=== PATIENT | female | born 1935 | race Caucasian/White ===

== ENCOUNTER 2018-09-04 16:39 | Emergency (ER) | payer MEDICARE, OTHER ==
[2018-09-04 16:59] VITALS: BP 142/69
[2018-09-04] MEDS ORDERED: Lidocaine 1% with EPINEPHrine 1:100,000 50 ML MDV INFILT ONE (17:40)
--- NOTE | 2018-09-04 18:44 | EDM.PDOC ---
ED HPI GENERAL MEDICAL PROBLEM - General Chief Complaint: Laceration Stated Complaint: LACERATION ON HEAD Time Seen by Provider: 09/04/18 17:10 Source of Information: Reports: Patient, Family History Limitations: Reports: No Limitations - History of Present Illness INITIAL COMMENTS - FREE TEXT/NARRATIVE: 83-year-old female stumbled backwards hitting the back of her head on the ground sustaining a laceration. She has a macerated somewhat irregular occipital laceration of the scalp hematoma. There is also a small hematoma on the right parietal scalp and the left forehead. Neurologically she's fine, no significant loss of consciousness and possibly just a brief 1 or 2 second amnesia of the event. She denies neck pain or back pain, injuries to her extremities or other complaints, no nausea or vomiting. Onset: Sudden Duration: Hour(s): (within the last hour) Location: Reports: Head Associated Symptoms: Denies: Confusion, Headaches, Loss of Appetite, Nausea/ Vomiting, Shortness of Breath, Weakness - Related Data Allergies Allergy/AdvReac Type Severity Reaction Status Date / Time codeine Allergy Bradycardia Verified 09/04/18 16:49 Home Meds: Home Meds Ascorbate Calcium [Vitamin C] 500 mg PO DAILY 05/14/16 [History] Calcium Carbonate [Calcium] 600 mg PO DAILY 05/14/16 [History] Omeprazole 20 mg PO DAILY 05/14/16 [History] Pravastatin [Pravachol] 40 mg PO DAILY 05/14/16 [History] Triamterene/Hydrochlorothiazid [Triamterene-HCTZ 37.5-25 MG] 1 tab PO DAILY 04/29 [History] amLODIPine Besylate [Amlodipine Besylate] 5 mg PO DAILY 05/14/16 [History] Naproxen 1 tab PO BID 04/16/18 [History] Clopidogrel Bisulfate [Clopidogrel] 09/04/18 [History] Metoprolol Tartrate 09/04/18 [History] Past Medical History HEENT History: Reports: Cataract, Hard of Hearing, Impaired Vision, Macular Degeneration Cardiovascular History: Reports: Heart Murmur, High Cholesterol, Hypertension, Prior Cardiac Arrest, Other (See Below) Other Cardiovascular History: "heart stopped during tear duct surgery due to pre -op muscle relaxant -40 years ago" Respiratory History: Reports: Bronchitis, Recurrent, Intubation, Previous, Pneumonia, Recurrent Gastrointestinal History: Reports: Colon Polyp, Gastritis, GERD 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: Dysfunctional Uterine Bleeding, , Spontaneous Musculoskeletal History: Reports: Osteoarthritis Psychiatric History: Reports: Anxiety Hematologic History: Reports: Anesthesia Reaction, Blood Transfusion(s) - Infectious Disease History Infectious Disease History: Reports: Chicken Pox, Measles, Mumps, Pertussis ( Whooping Cough) - Past Surgical History Head Surgeries/Procedures: Reports: None HEENT Surgical History: Reports: Cataract Surgery, Other (See Below) Female Surgical History: Reports: Breast Biopsy, D&C, Oophorectomy, Tubal Ligation Neurological Surgical History: Reports: None Musculoskeletal Surgical History: Reports: Arthroscopic Knee, Knee Replacement, Shoulder Surgery Dermatological Surgical History: Reports: Other (See Below) Social & Family History - Family History Family Medical History: Noncontributory - Tobacco Use Smoking Status *Q: Never Smoker - Caffeine Use Caffeine Use: Reports: Coffee ED ROS GENERAL - Review of Systems Review Of Systems: See Below Constitutional: Denies: Fever, Chills HEENT: Reports: No Symptoms. Denies: Vision Change Respiratory: Denies: Shortness of Breath GI/Abdominal: Denies: Nausea, Vomiting Musculoskeletal: Denies: Neck Pain, Back Pain Neurological: Denies: Confusion ED EXAM, SKIN/RASH Exam: See Below Exam Limited By: No Limitations General Appearance: Alert, No Apparent Distress Eye Exam: Bilateral Eye: Normal Inspection Ears: Other (A small amount of cerumen in ear canals, no hemotympanum or findings of trauma) Head: Other (Patient has several hematomas of the scalp, a small hematoma on the high left forehead, another small hematoma on the right parietal scalp and on the occiput that she has a larger hematoma with an overlying macerated 3 cm laceration) Respiratory/Chest: No Respiratory Distress, Lungs Clear Cardiovascular: Regular Rate, Rhythm Psychiatric: Normal Affect, Normal Mood Course - Vital Signs Last Recorded V/S: Last Vital Signs Temp 97.2 F 09/04/18 16:58 Pulse 72 09/04/18 16:58 Resp 14 09/04/18 16:58 BP 142/69 H 09/04/18 16:58 Pulse Ox 98 09/04/18 16:58 - Orders/Labs/Meds Meds: Medications Discontinued Medications Generic Name Dose Route Start Last Admin Trade Name Freq PRN Reason Stop Dose Admin Lidocaine/Epinephrine 30 ml 09/04/18 17:40 09/04/18 18:13 Xylocaine 1% With Epinephrine 1:100,000 INFILT 09/04/18 17:41 30 ml ONETIME ONE Administration - Re-Assessments/Exams Free Text/Narrative Re-Assessment/Exam: 09/05/18 07:12 The laceration was cleaned, a small amount of hair was cut back from the edges of the laceration and it was infiltrated with 1% lidocaine with epinephrine. After anesthesia it was flushed thoroughly with saline, and closed with 5 4-0 Ethilon sutures. A dressing was applied and the sutures can be removed in 7 days. The patient remained neurologically intact and normal and no further evaluation is necessary at this time. She does have family with her this weekend , they will bring her back if she starts to develop any confusion, persistent nausea or vomiting or neurologic deficits or concerns. Departure - Departure Time of Disposition: 18:47 Disposition: Home, Self-Care 01 Condition: Good Clinical Impression: Scalp laceration Qualifiers: Encounter type: initial encounter Qualified Code(s): S01.01XA - Laceration without foreign body of scalp, initial encounter Scalp hematoma Qualifiers: Encounter type: initial encounter Qualified Code(s): S00.03XA - Contusion of scalp, initial encounter - Discharge Information Instructions: Facial or Scalp Contusion, [id number], Sutured Wound Care, Easy -to-Read Referrals: PCP,None [Primary Care Provider] - Forms: ED Department Discharge Care Plan Goals: Ice to swollen areas will help, continue activity as tolerated. Sutures can be removed on Thursday next week. Return sooner if worsening such as persistent nausea or vomiting, visual changes or other concerns. Expect some neck and back stiffness over the next several days. Continue current medications.
== END 2018-09-04 18:48 | disposition home or self-care (01) ==
LOC: JP.ED 16:39
DX: S01.01XA Laceration without foreign body of scalp, initial encounter (principal); S00.83XA Contusion of other part of head, initial encounter; I10 Essential (primary) hypertension; K21.9 Gastro-esophageal reflux disease without esophagitis; Z88.5 Allergy status to narcotic agent; Z79.899 Other long term (current) drug therapy; Z98.49 Cataract extraction status, unspecified eye; Z98.51 Tubal ligation status; W22.8XXA Striking against or struck by other objects, initial encounter
CPT/HCPCS: 12002; 99282

== ENCOUNTER 2019-07-19 10:11 | Inpatient (IN) | payer MEDICARE, OTHER ==
[2019-07-19] MEDS ORDERED: Sodium Chloride 0.9% 10 ML Syringe FLUSH PRN (10:41)
[2019-07-19] MEDS ORDERED: Acetaminophen 325 MG Tab PO ONE (10:43)
[2019-07-19] MEDS ORDERED: Sodium Chloride 0.9% 1,000 ML IV SCH (10:45)
--- NOTE | 2019-07-19 10:47 | EDM.PDOC ---
ED HPI GENERAL MEDICAL PROBLEM - General Chief Complaint: Back Pain or Injury Stated Complaint: FELL Time Seen by Provider: 07/19/19 10:36 Source of Information: Reports: Patient, Family, RN Notes Reviewed History Limitations: Reports: No Limitations - History of Present Illness INITIAL COMMENTS - FREE TEXT/NARRATIVE: 84-year-old female presents emergency department today complaint of left flank pain she injured herself earlier this morning when she fell in her home landed on top of a metal waste container which hit directly in her left flank lower rib area. She is complaining of pain no nausea vomiting no shortness of breath no loss of consciousness pain is so intense it is difficult for her to move. - Related Data Allergies Allergy/AdvReac Type Severity Reaction Status Date / Time codeine Allergy Bradycardia Verified 07/19/19 11:05 Home Meds: Home Meds Ascorbate Calcium [Vitamin C] 500 mg PO DAILY 05/14/16 [History] Calcium Carbonate [Calcium] 600 mg PO DAILY 05/14/16 [History] Omeprazole 20 mg PO DAILY 05/14/16 [History] Pravastatin [Pravachol] 40 mg PO DAILY 05/14/16 [History] Triamterene/Hydrochlorothiazid [Triamterene-HCTZ 37.5-25 MG] 1 tab PO DAILY 04/29 [History] amLODIPine Besylate [Amlodipine Besylate] 5 mg PO DAILY 05/14/16 [History] Naproxen 1 tab PO BID 04/16/18 [History] Clopidogrel Bisulfate [Clopidogrel] 75 mg PO DAILY 09/04/18 [History] Metoprolol Tartrate 12.5 mg PO BID 09/04/18 [History] Latanoprost 1 drop EYEBOTH DAILY 12/29/18 [History] Hydrocodone/Acetaminophen [[place] 5-325 Tablet] 1 each PO Q8HR PRN #15 tablet [Rx] Aspirin 81 mg PO DAILY 06/07/19 [History] Past Medical History HEENT History: Reports: Cataract, Hard of Hearing, Impaired Vision, Macular Degeneration Cardiovascular History: Reports: Heart Murmur, High Cholesterol, Hypertension, Prior Cardiac Arrest, Other (See Below) Other Cardiovascular History: "heart stopped during tear duct surgery due to pre -op muscle relaxant -40 years ago" Respiratory History: Reports: Bronchitis, Recurrent, Intubation, Previous, Pneumonia, Recurrent Gastrointestinal History: Reports: Colon Polyp, Gastritis, GERD 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 R leg pain Psychiatric History: Reports: Anxiety Hematologic History: Reports: Anesthesia Reaction, Blood Transfusion(s) Immunologic History: Reports: None Oncologic (Cancer) History: Reports: None Dermatologic History: Reports: None - Infectious Disease History Infectious Disease History: Reports: Chicken Pox, Measles, Mumps, Pertussis ( Whooping Cough) - Past Surgical History Head Surgeries/Procedures: Reports: None HEENT Surgical History: Reports: Cataract Surgery, Other (See Below) Female Surgical History: Reports: Breast Biopsy, D&C, Oophorectomy, Tubal Ligation Neurological Surgical History: Reports: None Musculoskeletal Surgical History: Reports: Arthroscopic Knee, Knee Replacement, Shoulder Surgery, Other (See Below) Other Musculoskeletal Surgeries/Procedures:: Left knee Dermatological Surgical History: Reports: Other (See Below) Social & Family History - Family History Family Medical History: Noncontributory - Tobacco Use Smoking Status *Q: Never Smoker - Caffeine Use Caffeine Use: Reports: Coffee - Recreational Drug Use Recreational Drug Use: No ED ROS GENERAL - Review of Systems Review Of Systems: See Below Constitutional: Reports: No Symptoms HEENT: Reports: No Symptoms Respiratory: Reports: No Symptoms Cardiovascular: Reports: No Symptoms GI/Abdominal: Reports: No Symptoms : Reports: Flank Pain Musculoskeletal: Reports: No Symptoms Skin: Reports: No Symptoms ED EXAM, GI/ABD - Physical Exam Exam: See Below Exam Limited By: No Limitations General Appearance: Alert, WD/WN, No Apparent Distress Respiratory/Chest: No Respiratory Distress, Lungs Clear, Normal Breath Sounds, No Accessory Muscle Use, Chest Non-Tender Cardiovascular: Regular Rate, Rhythm, No Murmur GI/Abdominal Exam: Normal Bowel Sounds, Soft, Tender (Tender along the left flank lower rib cage area) Back Exam: Normal Inspection, Full Range of Motion. No: CVA Tenderness (R), CVA Tenderness (L) Extremities: Normal Inspection, No Pedal Edema Course - Vital Signs Last Recorded V/S: Last Vital Signs Temp 97.7 F 07/19/19 10:26 Pulse 84 07/19/19 12:04 Resp 18 07/19/19 12:04 BP 122/63 07/19/19 12:04 Pulse Ox 96 07/19/19 12:04 - Orders/Labs/Meds Orders: Active Orders 24 hr Category Date Time Status Peripheral IV Care [RC] . DIRECTED Care 07/19/19 10:42 Active Iopamidol [Isovue-300 (61%)] Med 07/19/19 11:06 Active 150 ml IV . DIRECTED PRN Sodium Chloride 0.9% [Normal Saline] 1,000 ml Med 07/19/19 10:45 Active IV ASDIRECTED Sodium Chloride 0.9% [Normal Saline] 86 ml Med 07/19/19 11:15 Active IV ASDIRECTED Sodium Chloride 0.9% [Saline Flush] Med 07/19/19 10:41 Active 10 ml FLUSH ASDIRECTED PRN Sodium Chloride 0.9% [Saline Flush] Med 07/19/19 11:15 Active 10 ml FLUSH ONETIME Peripheral IV Insertion Adult [OM.PC] Urgent Oth 07/19/19 10:41 Ordered Medication Orders Sodium Chloride (Normal Saline) 1,000 mls @ 500 mls/hr IV ASDIRECTED KATT Last Admin: 07/19/19 11:01 Dose: 500 mls/hr Sodium Chloride (Normal Saline) 86 mls @ 3.5 mls/sec IV ASDIRECTED KATT Stop: 07/19/19 13:00 Last Admin: 07/19/19 11:25 Dose: 3.5 mls/sec Iopamidol (Isovue-300 (61%)) 150 ml IV . DIRECTED PRN PRN Reason: RADIOLOGY EXAM Stop: 07/20/19 11:07 Last Admin: 07/19/19 11:24 Dose: 84 ml Sodium Chloride (Saline Flush) 10 ml FLUSH ASDIRECTED PRN PRN Reason: Keep Vein Open Last Admin: 07/19/19 11:02 Dose: 10 ml Sodium Chloride (Saline Flush) 10 ml FLUSH ONETIME KATT Last Admin: 07/19/19 11:24 Dose: 10 ml Labs: Laboratory Tests 07/19/19 07/19/19 07/19/19 Range/Units 10:41 10:57 10:57 WBC 6.5 (4.5-11.0) K/uL RBC 4.42 (3.30-5.50) M/uL Hgb 14.5 (12.0-15.0) g/dL Hct 43.4 (36.0-48.0) % MCV 98 (80-98) fL MCH 33 H (27-31) pg MCHC 33 (32-36) % Plt Count 260 (150-400) K/uL Neut % (Auto) 73 H (36-66) % Lymph % (Auto) 20 L (24-44) % [place] % (Auto) 6 (2-6) % Eos % (Auto) 2 (2-4) % Baso % (Auto) 0 (0-1) % Sodium 137 L (140-148) mmol/L Potassium 3.7 (3.6-5.2) mmol/L Chloride 98 L (100-108) mmol/L Carbon Dioxide 24 (21-32) mmol/L Anion Gap 18.7 H (5.0-14.0) mmol/L BUN 16 (7-18) mg/dL Creatinine 0.9 (0.6-1.0) mg/dL Est Cr Clr Drug Dosing 34.48 mL/min Estimated GFR (MDRD) 60 (>60) Glucose 98 (74-106) mg/dL Calcium 9.2 (8.5-10.1) mg/dL Total Bilirubin 0.5 (0.2-1.0) mg/dL AST 21 (15-37) U/L ALT 20 (12-78) U/L Alkaline Phosphatase 83 (46-116) U/L Total Protein 7.4 (6.4-8.2) g/dL Albumin 4.0 (3.4-5.0) g/dL Globulin 3.4 (2.3-3.5) g/dL Albumin/Globulin Ratio 1.2 (1.2-2.2) Urine Color Yellow (YELLOW) Urine Appearance Clear (CLEAR) Urine pH 7.0 (5.0-8.0) Ur Specific [place] 1.020 (1.008-1.030) Urine Protein 30 H (NEGATIVE) mg/dL Urine Glucose (UA) Negative (NEGATIVE) mg/dL Urine Ketones Negative (NEGATIVE) mg/dL Urine Occult Blood Negative (NEGATIVE) Urine Nitrite Negative (NEGATIVE) Urine Bilirubin Negative (NEGATIVE) Urine Urobilinogen 0.2 (0.2-1.0) EU/dL Ur Leukocyte Esterase Moderate H (NEGATIVE) Urine RBC 0-5 (0-5) Urine WBC 0-5 (0-5) Ur Epithelial Cells Moderate Amorphous Sediment Not seen Urine Bacteria Not seen Urine Mucus Rare Urine Other See note Meds: Medications Generic Name Dose Route Start Last Admin Trade Name Freq PRN Reason Stop Dose Admin Sodium Chloride 1,000 mls @ 500 mls/hr 07/19/19 10:45 07/19/19 11:01 Normal Saline IV 500 mls/hr ASDIRECTED KATT Administration Sodium Chloride 86 mls @ 3.5 mls/sec 07/19/19 11:15 07/19/19 11:25 Normal Saline IV 07/19/19 13:00 3.5 mls/sec ASDIRECTED KATT Administration Iopamidol 150 ml 07/19/19 11:06 07/19/19 11:24 Isovue-300 (61%) IV 07/20/19 11:07 84 ml . DIRECTED PRN Administration RADIOLOGY EXAM Sodium Chloride 10 ml 07/19/19 10:41 07/19/19 11:02 Saline Flush FLUSH 10 ml ASDIRECTED PRN Administration Keep Vein Open Sodium Chloride 10 ml 07/19/19 11:15 07/19/19 11:24 Saline Flush FLUSH 10 ml ONETIME KATT Administration Discontinued Medications Generic Name Dose Route Start Last Admin Trade Name Freq PRN Reason Stop Dose Admin Acetaminophen 650 mg 07/19/19 10:43 07/19/19 10:59 Tylenol PO 07/19/19 10:44 650 mg NOW ONE Administration Departure - Departure Time of Disposition: 12:26 Disposition: Admitted As Inpatient 65 Condition: Fair Clinical Impression: Closed splenic rupture - Discharge Information Referrals: PCP,None [Primary Care Provider] - Forms: ED Department Discharge Sepsis Event Note - Evaluation Sepsis Screening Result: No Definite Risk - Focused Exam Vital Signs: Vital Signs Temp Pulse Resp BP Pulse Ox 07/19/19 12:04 84 18 122/63 96 07/19/19 10:26 97.7 F 103 H 16 146/72 H 0 L Date Exam was Performed: 07/19/19 Time Exam was Performed: 12:25 - My Orders Last 24 Hours: My Active Orders 07/19/19 10:41 Sodium Chloride 0.9% [Saline Flush] 10 ml FLUSH ASDIRECTED PRN Peripheral IV Insertion Adult [OM.PC] Urgent 07/19/19 10:42 Peripheral IV Care [RC] . DIRECTED 07/19/19 10:45 Sodium Chloride 0.9% [Normal Saline] 1,000 ml IV ASDIRECTED 07/19/19 11:06 Iopamidol [Isovue-300 (61%)] 150 ml IV . DIRECTED PRN 07/19/19 11:15 Sodium Chloride 0.9% [Normal Saline] 86 ml IV ASDIRECTED Sodium Chloride 0.9% [Saline Flush] 10 ml FLUSH ONETIME - Assessment/Plan Last 24 Hours: My Active Orders 07/19/19 10:41 Sodium Chloride 0.9% [Saline Flush] 10 ml FLUSH ASDIRECTED PRN Peripheral IV Insertion Adult [OM.PC] Urgent 07/19/19 10:42 Peripheral IV Care [RC] . DIRECTED 07/19/19 10:45 Sodium Chloride 0.9% [Normal Saline] 1,000 ml IV ASDIRECTED 07/19/19 11:06 Iopamidol [Isovue-300 (61%)] 150 ml IV . DIRECTED PRN 07/19/19 11:15 Sodium Chloride 0.9% [Normal Saline] 86 ml IV ASDIRECTED Sodium Chloride 0.9% [Saline Flush] 10 ml FLUSH ONETIME Plan: Assessment Acuity = acute Site and laterality = splenic rupture Etiology = secondary to fall with trauma Manifestations = none Location of injury = Home Lab values = CBC CMP urinalysis unremarkable however CT scan does describe an area of fluid around the spleen concern for hemorrhage Plan Call discussed case Dr. Machado at 1210 he kindly agreed to come to the emergency department and evaluate the patient for admission This note was dictated using [employer] voice recognition software please call with any questions on syntax or grammar.
[2019-07-19] MEDS ORDERED: Iopamidol 612 MG/ML 150 ML Bottle IV PRN (11:06)
[2019-07-19] MEDS ORDERED: Sodium Chloride 0.9% 10 ML Syringe FLUSH SCH (11:15)
[2019-07-19] MEDS ORDERED: Sodium Chloride 0.9% 86 ML IV SCH (11:15)
--- NOTE | 2019-07-19 12:05 | CT ---
Abdomen Pelvis w Cont CLINICAL HISTORY: Left flank pain COMPARISON: None. TECHNIQUE: Axial tomographic images are obtained from the dome of the diaphragm to the pubic symphysis with IV contrast enhancement. No oral contrast was used. Auto dosage reduction and iterative reconstruction techniques employed. FINDINGS: The lung bases show changes of pulmonary fibrosis.. There is a large retrocardiac hiatal hernia. The liver shows no mass or biliary dilatation. The gallbladder shows some mild wall enhancement. No pericholecystic inflammatory changes are identified.. The spleen has a normal size, shape and contour. There is fluid around the spleen. This measures somewhat high for simple fluid. This could be from hemorrhage. Chronology is uncertain. The pancreas shows some fatty infiltration. No mass or inflammatory changes seen. The adrenal glands appear normal bilaterally. The kidneys show no mass, stones or hydronephrosis. The aorta shows moderate atheromatous plaque without aneurysm. There is no suspicious retroperitoneal adenopathy. There is colonic diverticulosis without evidence of diverticulitis. The uterus has a postmenopausal appearance with scattered calcifications likely fibroids. IMPRESSION: There is a collection of fluid around the superior lateral aspect of the spleen. This measures somewhat high for ascitic fluid and is suspect for hemorrhage. The spleen itself has a normal contour and density. Diverticulosis without evidence of diverticulitis. MTDD
[2019-07-19] MEDS ORDERED: Naloxone 0.4 MG/ML SDV IV PRN (13:35)
[2019-07-19] MEDS ORDERED: HYDROmorphone/Normal Saline 15 MG/30 ML PCA IV PRN (13:35)
[2019-07-19] MEDS: Dextrose 5%-Lactated Ringers 1,000 ML IV SCH ×2 (14:14→23:20)
[2019-07-19] MEDS: amLODIPine 5 MG Tab PO SCH (14:42)
[2019-07-19] MEDS: Hydrochlorothiazide/Triamterene 25-37.5 Tab PO SCH (14:42)
[2019-07-19] MEDS: Acetaminophen/HYDROcodone 325-5 MG Tab PO PRN ×2 (15:28→20:43)
[2019-07-19] MEDS: Metoprolol Tartrate 25 MG Tab PO SCH (20:38)
[2019-07-19] MEDS: Latanoprost 0.005% Ophth Soln 2.5 ML Bottle EYEBOTH SCH (20:40)
[2019-07-20] MEDS: Ondansetron 4 MG/2 ML SDV IVPUSH PRN ×3 (07:20→19:21)
[2019-07-20] MEDS: Pantoprazole 40 MG Vial IV SCH ×2 (07:22→20:14)
[2019-07-20] MEDS ORDERED: Pantoprazole 40 MG Tab.CR PO SCH (07:30)
[2019-07-20] MEDS: Metoclopramide 10 MG/2 ML SDV IVPUSH SCH ×3 (07:47→20:15)
[2019-07-20] MEDS: Dextrose 5%-Lactated Ringers 1,000 ML IV SCH ×3 (08:39→19:20)
[2019-07-20] MEDS: Metoprolol Tartrate 25 MG Tab PO SCH ×2 (08:42→20:16)
[2019-07-20] MEDS: Hydrochlorothiazide/Triamterene 25-37.5 Tab PO SCH (08:43)
[2019-07-20] MEDS: amLODIPine 5 MG Tab PO SCH (08:43)
[2019-07-20] MEDS ORDERED: amLODIPine 5 MG Tab PO SCH (09:00)
[2019-07-20] MEDS ORDERED: Hydrochlorothiazide/Triamterene 25-37.5 Tab PO SCH (09:00)
--- NOTE | 2019-07-20 14:06 | PN ---
DATE OF SERVICE: 07/20/2019 The patient has been afebrile with stable vital signs. Her main complaint is some nausea. She did not receive the ordered Prilosec yesterday. We will give her some IV Protonix now, and we will also give some Zofran, and begin some scheduled Reglan. Otherwise, hemoglobin has dropped down a little bit, but she is otherwise hemodynamically stable. Continue to monitor the hemoglobin and keep her more or less at bedrest, and we will advance her diet, given her present nausea situation. Avery Machado MD /[id number] MTDD
--- NOTE | 2019-07-20 14:51 | CONS ---
DATE OF SERVICE: 07/19/2019 REFERRING PHYSICIAN: CONSULTING PHYSICIAN: Avery Machado MD HISTORY OF PRESENT ILLNESS: This is an 84-year-old female who tripped and fell on her left flank hitting a wastebasket. She complained of quite a bit of pain in the area, but no shortness of breath. A CT scan was obtained, which was consistent with a small perisplenic hematoma. The patient did receive IV contrast, and there was no blush or obvious ongoing bleeding present, and likewise, there was no obvious significant fragmentation of the liver or spleen. The patient has been hemodynamically stable and the plan would be admission with observation and serial hemoglobins. The patient's past medical history, social history, medications, and allergies are as per the attached H and P dictated by Dr. Officer. PHYSICAL EXAMINATION: EXTREMITIES: The patient had some bruising in the left flank area. LUNGS: Clear. ABDOMEN: Somewhat tender in the left upper quadrant. This appeared to be more related to the motion of the ribs when abdomen is pushed rather than peritoneal signs. IMPRESSION: Splenic injury at a lower stage with perisplenic hematoma and hemodynamic stability. PLAN: Plan will be to admit the patient to ICU with serial hemoglobins and ongoing vital sign checks and also work on pulmonary toilet with regard to use of incentive spirometer and otherwise cough in deep breathing. However, stay on bedrest other than bedside commode for now, and we will see how she is doing in the morning in terms of perhaps advancing diet. Avery Machado MD /[id number]
[2019-07-20] MEDS: Latanoprost 0.005% Ophth Soln 2.5 ML Bottle EYEBOTH SCH (20:11)
[2019-07-21] MEDS: Ondansetron 4 MG/2 ML SDV IVPUSH PRN (00:14)
[2019-07-21] MEDS ORDERED: Ondansetron 4 MG Tab.DIS PO PRN (07:29)
[2019-07-21] MEDS: Pantoprazole 40 MG Vial IV SCH (07:30)
[2019-07-21] MEDS: Metoclopramide 10 MG/2 ML SDV IVPUSH SCH (07:34)
[2019-07-21] MEDS: Docusate Sodium 100 MG Cap PO SCH ×2 (08:49→20:25)
[2019-07-21] MEDS: Bisacodyl 5 MG Tab PO SCH ×2 (08:49→20:26)
[2019-07-21] MEDS: Pantoprazole 40 MG Tab.CR PO SCH ×2 (08:49→16:31)
[2019-07-21] MEDS: Metoprolol Tartrate 25 MG Tab PO SCH ×2 (08:50→20:26)
[2019-07-21] MEDS: Magnesium Oxide 400 MG Tab PO SCH ×2 (08:50→20:27)
[2019-07-21] MEDS: Potassium Chloride 20 MEQ Tab.ER PO SCH ×4 (08:50→20:26)
[2019-07-21] MEDS: Hydrochlorothiazide/Triamterene 25-37.5 Tab PO SCH (08:51)
[2019-07-21] MEDS: amLODIPine 5 MG Tab PO SCH (08:51)
[2019-07-21] MEDS: Latanoprost 0.005% Ophth Soln 2.5 ML Bottle EYEBOTH SCH (20:24)
[2019-07-22] MEDS: Pantoprazole 40 MG Tab.CR PO SCH (07:37)
[2019-07-22 07:41] VITALS: BP 121/69; PULSE 77
[2019-07-22] MEDS: Bisacodyl 5 MG Tab PO SCH (08:04)
[2019-07-22] MEDS: Magnesium Oxide 400 MG Tab PO SCH (08:05)
[2019-07-22] MEDS: Hydrochlorothiazide/Triamterene 25-37.5 Tab PO SCH (08:05)
[2019-07-22] MEDS: Metoprolol Tartrate 25 MG Tab PO SCH (08:05)
[2019-07-22] MEDS: amLODIPine 5 MG Tab PO SCH (08:05)
[2019-07-22] MEDS: Docusate Sodium 100 MG Cap PO SCH (08:05)
--- NOTE | 2019-07-22 08:13 | PN ---
DATE OF SERVICE: 07/21/2019 The patient has been afebrile with stable vital signs. Hemoglobin is fairly stable at 12.6, at midnight on 07/19 it was 12.8, yesterday morning it was 13.0, so this with 12.6 is essentially stable. Clinically, the nausea has dissipated and I think we will leave that out. Potassium is somewhat low. I will supplement that orally today as is magnesium. We will get her up and moving today, regular diet, bowel stimulation, and she is otherwise stable to be ready for discharge home tomorrow. Avery Machado MD /[id number]
[2019-07-22] MEDS ORDERED: Magnesium Hydroxide 400 MG/5 ML Susp 30 ML Cup PO PRN (08:33)
--- NOTE | 2019-07-22 09:01 | DISCH ---
FINAL DIAGNOSIS: Ruptured spleen (low-grade) with minimal perisplenic hematoma. SECONDARY DIAGNOSES: 1. Hypokalemia. 2. Hypomagnesemia. OPERATIVE PROCEDURE: None. SUMMARY: This is an 84-year-old female who was admitted after falling and hitting her left flank area on a metal wastebasket. She presented with quite a bit of pain in the left flank. A CT scan was obtained which showed perisplenic hematoma. There is no obvious splenic injury so this would probably be a minor capsular tear. She was admitted for observation. At present she is having no nausea and pain control was only done with just some Tylenol, and hemoglobin is stable at 11.9 and being at 11.8 on the date of admission. Should be discharged home on a regular diet and activity as tolerated. She obviously at 84 is not likely to do anything significant as far as physical activity, so no specific restriction will be placed in that area. The patient's potassium and magnesium were both followed. She will be supplemented on those for the next 60 days. Otherwise, she will continue her home medications. Follow up with Dr. Machado at [facility] on 07/26, with CBC at that time.
== END 2019-07-22 09:50 | disposition home or self-care (01) | DRG 816 ==
LOC: JP.ED 10:11 → JP.ICU 12:50
PROVIDERS: ADMIT Surgery; ATTEND Surgery
DX: S36.09XA Other injury of spleen, initial encounter (principal); W18.39XA Other fall on same level, initial encounter; S36.029A Unspecified contusion of spleen, initial encounter; W01.198A Fall on same level from slipping, tripping and stumbling with subsequent striking against other object, initial encounter; E87.6 Hypokalemia; Z86.74 Personal history of sudden cardiac arrest; E83.42 Hypomagnesemia; K44.9 Diaphragmatic hernia without obstruction or gangrene; H91.90 Unspecified hearing loss, unspecified ear; H54.7 Unspecified visual loss; E78.00 Pure hypercholesterolemia, unspecified; Z96.652 Presence of left artificial knee joint; I10 Essential (primary) hypertension; Z79.02 Long term (current) use of antithrombotics/antiplatelets; Z79.82 Long term (current) use of aspirin; K21.9 Gastro-esophageal reflux disease without esophagitis; M19.90 Unspecified osteoarthritis, unspecified site; F41.9 Anxiety disorder, unspecified; H35.30 Unspecified macular degeneration; Z88.5 Allergy status to narcotic agent; Z79.899 Other long term (current) drug therapy; Z87.01 Personal history of pneumonia (recurrent); Z86.010 Personal history of colon polyps; Z98.49 Cataract extraction status, unspecified eye; Z98.41 Cataract extraction status, right eye
CPT/HCPCS: 36415; 74177; 74177-26; 80048; 80053; 81001; 83735; 83880; 84100; 85025; 85027; 86850; 86900; 86901; 86920; 86922; 96360; 99285; 99285-25; A9270-GY; C9113; J2405; J2765; J7030; J7050; J7121; Q9967

== ENCOUNTER 2020-06-02 16:14 | Inpatient (IN) | payer MEDICARE, OTHER ==
--- NOTE | 2020-06-02 16:46 | EDM.PDOC ---
ED HPI GENERAL MEDICAL PROBLEM - General Chief Complaint: General Stated Complaint: BACK PAIN,FALL YESTERDAY Time Seen by Provider: 06/02/20 16:32 Source of Information: Reports: Patient, Family History Limitations: Reports: No Limitations - History of Present Illness INITIAL COMMENTS - FREE TEXT/NARRATIVE: Patient presents via private vehicle with family during covid pandemic. history from patient and family. Patient is status post fall 1 day ago, she was seen by physician and had laceration repair to the scalp. Patient presents today with ongoing constant moderate nonradiating nonmigratory constant right posterior chest wall pain that occurred since the fall yesterday. She denies any loss of consciousness, neck pain, alcohol use or long-term anticoagulation use. she notes ongoing pain despite the use of Motrin at home today. Patient denies any headache, neck pain, jaw pain, anterior chest pain, abdominal pain, diarrhea, pelvic pain, arm or leg numbness tingling or weakness. She notes is been difficult for her to around her home environment. She presents her with her daughter. Patient does walk with a cane. Patient notes that she had been cleaning her fridge and was bringing hot dogs on the whole when she dropped a hot dogs, sat down her cane and then went to olive picker the hot dogs falling onto a banister in the hallway to her posterior right. She hit her head suffered a scalp laceration and the right posterior chest wall pain. Patient has any shortness of breath. Per patient has any runny nose, sore throat, cough, change in taste or smell. No diarrhea. No pelvic pain. No arm or leg numbness or tingling. Patient feels safe in her environment she does report was hard to get around today however and usually walks with a cane. Presents here with her daughter was at the bedside. Patient's daughter notes that she is concerned about her mother's ability to live at her current environment right now as the patient took over 20 minutes to get out of bed this morning and has had difficulty getting around her living environment without assistance. Patient lives alone in a senior apartment. - Related Data Allergies Allergy/AdvReac Type Severity Reaction Status Date / Time codeine Allergy Bradycardia Verified 06/02/20 16:32 Home Meds: Home Meds Ascorbate Calcium [Vitamin C] 500 mg PO DAILY 05/14/16 [History] Calcium Carbonate [Calcium] 600 mg PO DAILY 05/14/16 [History] Omeprazole 20 mg PO DAILY 05/14/16 [History] Pravastatin [Pravachol] 40 mg PO DAILY 05/14/16 [History] amLODIPine Besylate [Amlodipine Besylate] 5 mg PO DAILY 05/14/16 [History] Naproxen 500 mg PO BID 04/16/18 [History] Metoprolol Tartrate 12.5 mg PO BID 09/04/18 [History] Latanoprost 1 drop EYEBOTH DAILY 12/29/18 [History] Aspirin 81 mg PO DAILY 06/07/19 [History] Magnesium Oxide 400 mg PO DAILY 05/07/20 [History] Potassium Chloride 20 meq PO DAILY 05/07/20 [History] Triamterene/Hydrochlorothiazid [Dyazide 37.5-25 Capsule] 1 tab PO DAILY 05/07/20 [History] Past Medical History HEENT History: Reports: Cataract, Hard of Hearing, Impaired Vision, Macular Degeneration Cardiovascular History: Reports: Heart Murmur, High Cholesterol, Hypertension, Other (See Below) Other Cardiovascular History: "heart stopped during tear duct surgery due to pre-op muscle relaxant -40 years ago" Respiratory History: Reports: Bronchitis, Recurrent, Intubation, Previous, Pneumonia, Recurrent Gastrointestinal History: Reports: Colon Polyp, Gastritis, GERD Genitourinary History: Reports: Urinary Incontinence PLANT [employer]ER History: Reports: Dysfunctional Uterine Bleeding, , Spontaneous Musculoskeletal History: Reports: Osteoarthritis Other Musculoskeletal History: R shoulder pain. R knee pain. R leg pain Neurological History: Reports: None Psychiatric History: Reports: Anxiety Endocrine/Metabolic History: Reports: None Hematologic History: Reports: Anesthesia Reaction, Blood Transfusion(s) Immunologic History: Reports: None Oncologic (Cancer) History: Reports: None Dermatologic History: Reports: None - Infectious Disease History Infectious Disease History: Reports: Chicken Pox, Measles, Mumps, Pertussis (Whooping Cough) - Past Surgical History Head Surgeries/Procedures: Reports: None HEENT Surgical History: Reports: Cataract Surgery, Other (See Below) Other HEENT Surgeries/Procedures: attempted new tear duct but didn't work" Cardiovascular Surgical History: Reports: None Respiratory Surgical History: Reports: None GI Surgical History: Reports: Colonoscopy Female Surgical History: Reports: Breast Biopsy, D&C, Oophorectomy, Tubal Ligation Neurological Surgical History: Reports: None Musculoskeletal Surgical History: Reports: Arthroscopic Knee, Knee Replacement, Shoulder Surgery, Other (See Below) Other Musculoskeletal Surgeries/Procedures:: Left knee Dermatological Surgical History: Reports: Other (See Below) Social & Family History - Family History Family Medical History: No Pertinent Family History - Caffeine Use Caffeine Use: Reports: Coffee ED ROS GENERAL - Review of Systems Review Of Systems: See Below Constitutional: Reports: No Symptoms. Denies: Fever, Chills HEENT: Reports: No Symptoms Respiratory: Reports: No Symptoms, Pleuritic Chest Pain. Denies: Sputum, Hemoptysis Cardiovascular: Reports: Chest Pain. Denies: Syncope Endocrine: Reports: No Symptoms GI/Abdominal: Reports: No Symptoms. Denies: Black Stool, Bloody Stool : Denies: Flank Pain, Hematuria Musculoskeletal: Reports: Back Pain. Denies: Neck Pain, Arm Pain, Leg Pain, Foot Pain, Joint Pain, Muscle Pain Skin: Reports: No Symptoms Neurological: Reports: No Symptoms. Denies: Headache, Numbness Psychiatric: Reports: No Symptoms Hematologic/Lymphatic: Denies: Anemia, Easy Bleeding Immunologic: Reports: No Symptoms ED EXAM, GENERAL - Physical Exam Exam: See Below Exam Limited By: No Limitations General Appearance: Alert, Moderate Distress Eye Exam: Bilateral Eye: PERRL Ears: Normal External Exam, Hearing Grossly Normal Nose: Normal Inspection Throat/Mouth: Normal Inspection, Normal Lips, Normal Teeth Head: Other (isolated 1 cm scalp laceration with loose suture. ) Neck: Normal Inspection, Non-Tender Respiratory/Chest: Lungs Clear, Other (right posterior thorax chest wall pain, bruising. ) Cardiovascular: Normal Peripheral Pulses, Regular Rate, Rhythm, No Edema, No Murmur Peripheral Pulses: 2+: Radial (L), Radial (R) GI/Abdominal: Normal Bowel Sounds, Soft, Non-Tender, No Distention, Pelvis Stable, Other (no tenderness. no abrasions. normal inspection. ) Back Exam: Other (tender over right post thorax wall. ) Extremities: Normal Inspection, Non-Tender, Normal Capillary Refill Neurological: Alert, Oriented, Normal Cognition, No Motor/Sensory Deficits, Other (gcs 15. fluent speech. intact memory. good historian. ) Psychiatric: Normal Affect Skin Exam: Warm, Other (bruise over right chest wall, posterior) Lymphatic: No Adenopathy #1 Interpretation EKG Date: 06/02/20 Time: 17:21 Rhythm: NSR Rate (Beats/Min): 83 [place]: Normal P-Wave: Present ST-T: Normal QT: Normal Course - Vital Signs Text/Narrative:: History and trauma exam had the toes notable for a clean linear superficial minor scalp abrasion/laceration with 1 stitch there is no longer in place. There is no cephalhematoma. Patient has exquisite tenderness over the right posterior hemithorax with ecchymosis and bruising. She is unable to move on examination cart or sit up without significant assistance. Her pelvis and long bones are without bony tenderness or deformity. She does not have any CT or L- spine point tenderness but she has distracting injury on exam. 1704: Hospital course stat Portable Chest x-rays obtained upright AP shows mu ltiple right-sided rib fractures with questionable apical pneumothorax. 1710: NPO, IV fentanyl, CT head, C spine. Chest/abd/pelvis will need admission. labs ordered. 1715: patient and daughter updated with plan for advanced imaging. need to admit. high risk of complications from this injury. Dr. Jersey Machado, trauma surgery paged. IV fentanyl given. 1724: Dr. Jersey Machado consulted, trauma surgery, who will see in consult. Hospitalist paged to admit, Dr. Bartolome Joe. 1730: Dr. Bartolome Joe accepts, will follow imaging and coordinate with Dr. Jersey Machado additional inpatient cares, ongoing trauma evaluation/interventions. 1731: ekg from 1721: no stemi. see records/interpretation 1800: care to Dr. Holden MD handoff at bedside. we reviewed. CXR, pending CT head, C spine, CAP and admission to hospitalist with ongoing surgical consultation. patient and daughter updated. MDM: Becca Smyth is a pleasant female status post mechanical fall that occurred yesterday in the hallway of her apartment as she dropped hot dogs, bent over without her cane to olive picker the hot dogs and fell backwards hitting her head suffering a superficial scalp laceration that was repaired by physician yester day and since then patient is ongoing right posterior hemithorax nonradiating constant severe chest pain. She had difficulty living independently due to this fall and pain. She presents via private car and on exam has concerning findings on her right posterior hemithorax including significant tenderness and ecchymosis. Her stat portable chest x-ray shows multiple right-sided rib fractures and a questionable apical pneumothorax without signs of tension or hemothorax. Patient's remaining head, spine, abdomen pelvis and long bone exam is reassuring but due to the distracting injury advanced imaging is ordered and currently pending. Patient is mid to the hospital service with ongoing consultation by the surgeon and the care is signed out to Dr. Hatch at [place] change of shift pending CT imaging studies. Patient is goal-directed to stay at this hospital and avoid transfer if possible. I have updated the patient that at times there may be CT findings that would necessitate transfer to a higher level of care/higher trauma center. Patient certainly seems helically stable over last 1 day, has no oxygen needs at this time and has no Covid symptoms. It has been an honor meeting this patient and providing initial ER care. Patient does have mild incidental hypokalemia that can treated as inpatient. Last Recorded V/S: Last Vital Signs Temp 36.9 C 06/02/20 16:41 Pulse 85 06/02/20 18:04 Resp 14 06/02/20 18:04 BP 147/70 H 06/02/20 18:04 Pulse Ox 91 L 06/02/20 18:04 - Orders/Labs/Meds Orders: Active Orders 24 hr Category Date Time Status EKG Documentation Completion [RC] ASDIRECTED Care 06/02/20 17:05 Active Cervical Spine wo Cont [CT] Stat Exams 06/02/20 17:07 Taken Chest 1V Frontal [CR] Stat Exams 06/02/20 16:47 Taken Chest Abdomen Pelvis w Cont [CT] Stat Exams 06/02/20 17:07 Taken Head wo Cont [CT] Stat Exams 06/02/20 17:07 Taken Iopamidol [Isovue-300 (61%)] Med 06/02/20 17:30 Active 94 ml IV . DIRECTED Potassium Chloride Riders [KCL in Water 40 MEQ/100 ML] Med 06/02/20 18:12 Ordered 40 meq Premix Bag 1 bag IV ONETIME Potassium Chloride [Klor-Con M20] Med 06/02/20 18:12 Once 40 meq PO ONETIME ONE Sodium Chloride 0.9% [Normal Saline] 1,000 ml Med 06/02/20 17:15 Active IV ASDIRECTED Sodium Chloride 0.9% [Normal Saline] 71 ml Med 06/02/20 17:30 Active IV ASDIRECTED Sodium Chloride 0.9% [Saline Flush] Med 06/02/20 17:04 Active 10 ml FLUSH ASDIRECTED PRN fentaNYL [Sublimaze] Med 06/02/20 17:05 Active 50 mcg IVPUSH ONETIME PRN Saline Lock Insert [OM.PC] Stat Oth 06/02/20 17:05 Ordered EKG 12 Lead [EK] Stat Ther 06/02/20 17:05 Ordered Medication Orders Fentanyl (Sublimaze) 50 mcg IVPUSH ONETIME PRN PRN Reason: Pain (severe 7-10) Last Admin: 06/02/20 17:16 Dose: 50 mcg Documented by: COLIN Sodium Chloride (Normal Saline) 1,000 mls @ 999 mls/hr IV ASDIRECTED KATT Last Admin: 06/02/20 17:58 Dose: 500 mls/hr Documented by: COLIN Sodium Chloride (Normal Saline) 71 mls @ 3 mls/sec IV ASDIRECTED KATT Last Admin: 06/02/20 17:44 Dose: 3 mls/sec Documented by: THELASH Potassium Chloride 40 meq/ (Premix) 100 mls @ 25 mls/hr IV ONETIME ONE Stop: 06/02/20 22:11 Iopamidol (Isovue-300 (61%)) 94 ml IV . DIRECTED KATT Last Admin: 06/02/20 17:49 Dose: 94 ml Documented by: THELASH Potassium Chloride (Klor-Con M20) 40 meq PO ONETIME ONE Stop: 06/02/20 18:13 Sodium Chloride (Saline Flush) 10 ml FLUSH ASDIRECTED PRN PRN Reason: Keep Vein Open Last Admin: 06/02/20 18:00 Dose: 10 ml Documented by: COLIN Labs: Laboratory Tests 06/02/20 06/02/20 Range/Units 17:19 17:19 WBC 9.3 (4.5-11.0) K/uL RBC 4.36 (3.30-5.50) M/uL Hgb 14.2 D (12.0-15.0) g/dL Hct 42.8 (36.0-48.0) % MCV 98 (80-98) fL MCH 33 H (27-31) pg MCHC 33 (32-36) % Plt Count 281 (150-400) K/uL Neut % (Auto) 88 H (36-66) % Lymph % (Auto) 6 L (24-44) % [place] % (Auto) 5 (2-6) % Eos % (Auto) 0 L (2-4) % Baso % (Auto) 0 (0-1) % Sodium 139 L (140-148) mmol/L Potassium 3.0 L (3.6-5.2) mmol/L Chloride 101 (100-108) mmol/L Carbon Dioxide 26 (21-32) mmol/L Anion Gap 15.0 H (5.0-14.0) mmol/L BUN 13 D (7-18) mg/dL Creatinine 0.6 (0.5-1.0) mg/dL Est Cr Clr Drug Dosing 50.79 mL/min Estimated GFR (MDRD) > 60 (>60) BUN/Creatinine Ratio Not Reportable Glucose 134 H (74-106) mg/dL Calcium 9.2 (8.5-10.1) mg/dL Total Bilirubin 0.6 (0.2-1.0) mg/dL AST 20 (15-37) U/L ALT 20 (12-78) U/L Alkaline Phosphatase 73 (46-116) U/L Total Protein 7.4 (6.4-8.2) g/dL Albumin 3.7 (3.4-5.0) g/dL Globulin 3.7 H (2.3-3.5) g/dL Albumin/Globulin Ratio 1.0 L (1.2-2.2) Meds: Medications Generic Name Dose Route Start Last Admin Trade Name Freq PRN Reason Stop Dose Admin Fentanyl 50 mcg 06/02/20 17:05 06/02/20 17:16 Sublimaze IVPUSH 50 mcg ONETIME PRN Administration Pain (severe 7-10) Sodium Chloride 1,000 mls @ 999 mls/hr 06/02/20 17:15 06/02/20 17:58 Normal Saline IV 500 mls/hr ASDIRECTED KATT Administration Sodium Chloride 71 mls @ 3 mls/sec 06/02/20 17:30 06/02/20 17:44 Normal Saline IV 3 mls/sec ASDIRECTED KATT Administration Potassium Chloride 40 meq/ 100 mls @ 25 mls/hr 06/02/20 18:12 Premix IV 06/02/20 22:11 ONETIME ONE Iopamidol 94 ml 06/02/20 17:30 06/02/20 17:49 Isovue-300 (61%) IV 94 ml . DIRECTED KATT Administration Potassium Chloride 40 meq 06/02/20 18:12 Klor-Con M20 PO 06/02/20 18:13 ONETIME ONE Sodium Chloride 10 ml 06/02/20 17:04 06/02/20 18:00 Saline Flush FLUSH 10 ml ASDIRECTED PRN Administration Keep Vein Open Discontinued Medications Generic Name Dose Route Start Last Admin Trade Name Freq PRN Reason Stop Dose Admin Fentanyl 50 mcg 06/02/20 17:17 06/02/20 17:58 Sublimaze IVPUSH 06/02/20 17:18 50 mcg ONETIME ONE Administration Sodium Chloride 10 ml 06/02/20 17:28 06/02/20 17:45 Saline Flush FLUSH 06/02/20 17:29 10 ml ONETIME ONE Administration Departure - Departure Time of Disposition: 18:05 (admitted to Dr. Marina Manzano, trauma consult Dr. Aminta Machado, care transitioned to Dr. Hatch in ED at MD change of shift at 1800, CT's and labs signed out to Dr. Hatch. ) Disposition: Admitted As Inpatient 65 Condition: Serious Clinical Impression: Fall, Ribs, multiple fractures, Hypokalemia - Discharge Information *PRESCRIPTION DRUG MONITORING PROGRAM REVIEWED*: No *COPY OF PRESCRIPTION DRUG MONITORING REPORT IN PATIENT CARRI: No Referrals: Bhavesh Hua Sr, MD [Primary Care Provider] - Forms: ED Department Discharge Sepsis Event Note (ED) - Focused Exam Vital Signs: Vital Signs Temp Pulse Resp BP Pulse Ox 06/02/20 18:04 85 14 147/70 H 91 L 06/02/20 16:41 36.9 C 95 16 171/78 H 96 06/02/20 16:31 36.9 C 95 16 171/78 H 96 - My Orders Last 24 Hours: My Active Orders 06/02/20 16:47 Chest 1V Frontal [CR] Stat 06/02/20 17:04 Sodium Chloride 0.9% [Saline Flush] 10 ml FLUSH ASDIRECTED PRN 06/02/20 17:05 EKG Documentation Completion [RC] ASDIRECTED fentaNYL [Sublimaze] 50 mcg IVPUSH ONETIME PRN Saline Lock Insert [OM.PC] Stat EKG 12 Lead [EK] Stat 06/02/20 17:07 Cervical Spine wo Cont [CT] Stat Chest Abdomen Pelvis w Cont [CT] Stat Head wo Cont [CT] Stat 06/02/20 17:15 Sodium Chloride 0.9% [Normal Saline] 1,000 ml IV ASDIRECTED 06/02/20 17:30 Iopamidol [Isovue-300 (61%)] 94 ml IV . DIRECTED Sodium Chloride 0.9% [Normal Saline] 71 ml IV ASDIRECTED - Assessment/Plan Last 24 Hours: My Active Orders 06/02/20 16:47 Chest 1V Frontal [CR] Stat 06/02/20 17:04 Sodium Chloride 0.9% [Saline Flush] 10 ml FLUSH ASDIRECTED PRN 06/02/20 17:05 EKG Documentation Completion [RC] ASDIRECTED fentaNYL [Sublimaze] 50 mcg IVPUSH ONETIME PRN Saline Lock Insert [OM.PC] Stat EKG 12 Lead [EK] Stat 06/02/20 17:07 Cervical Spine wo Cont [CT] Stat Chest Abdomen Pelvis w Cont [CT] Stat Head wo Cont [CT] Stat 06/02/20 17:15 Sodium Chloride 0.9% [Normal Saline] 1,000 ml IV ASDIRECTED 06/02/20 17:30 Iopamidol [Isovue-300 (61%)] 94 ml IV . DIRECTED Sodium Chloride 0.9% [Normal Saline] 71 ml IV ASDIRECTED
[2020-06-02] MEDS ORDERED: Sodium Chloride 0.9% 10 ML Syringe FLUSH PRN ×2 (17:04→18:13)
[2020-06-02] MEDS ORDERED: fentaNYL 100 MCG/2 ML SDV IVPUSH PRN (17:05)
[2020-06-02] MEDS ORDERED: Sodium Chloride 0.9% 1,000 ML IV SCH (17:15)
[2020-06-02] MEDS ORDERED: fentaNYL 100 MCG/2 ML SDV IVPUSH ONE (17:17)
[2020-06-02] MEDS ORDERED: Sodium Chloride 0.9% 10 ML Syringe FLUSH ONE (17:28)
[2020-06-02] MEDS ORDERED: Sodium Chloride 0.9% 71 ML IV SCH (17:30)
[2020-06-02] MEDS ORDERED: Iopamidol 612 MG/ML 100 ML Bottle IV SCH (17:30)
[2020-06-02] MEDS ORDERED: Potassium Chloride Riders 40 MEQ in Premix Bag 1 BAG IV ONE (18:12)
[2020-06-02] MEDS ORDERED: Potassium Chloride 20 MEQ Tab.ER PO ONE (18:12)
[2020-06-02] MEDS ORDERED: Polyethylene Glycol 3350 Powder 17 GM Packet PO PRN (18:13)
[2020-06-02] MEDS ORDERED: Ondansetron 4 MG/2 ML SDV IV PRN (18:13)
[2020-06-02] MEDS ORDERED: Albuterol 0.083% 2.5 MG/3 ML Neb Soln NEB PRN (18:13)
[2020-06-02] MEDS ORDERED: Acetaminophen 325 MG Tab PO PRN (18:13)
[2020-06-02] MEDS ORDERED: HYDROmorphone 0.5 MG/0.5 ML Syringe IVPUSH PRN (18:18)
--- NOTE | 2020-06-02 18:22 | PCM.HP.2 ---
H&P History of Present Illness - General Date of Service: 06/02/20 Admit Problem/Dx: Admission Diagnosis/Problem Admission Diagnosis/Problem Pneumothorax Source of Information: Patient, Family, Provider, RN Notes Reviewed History Limitations: Reports: No Limitations - History of Present Illness Initial Comments - Free Text/Narative: Ms. Smyth is an 85-year-old woman who was admitted through the emergency department with severe right chest wall pain secondary to multiple right-sided rib fractures following a fall. She fell on the morning prior to admission and noted chest wall pain as well as a small laceration on her scalp. She was into the clinic and did have a suture placed in the scalp and then returned home. Over the last 24 hours has had severe pain and difficulty with any type of movement because of right chest wall pain. Because of this she presented to the emergency department this afternoon, chest x-ray shows 8 rib fractures on the right. CT scan of the head and cervical spine show no acute abnormalities. CT scan of the chest documents rib fractures as well as a 10% pneumothorax. - Related Data Allergies/Adverse Reactions: Allergies Allergy/AdvReac Type Severity Reaction Status Date / Time codeine Allergy Bradycardia Verified 06/02/20 16:32 Home Medications: Home Meds Ascorbate Calcium [Vitamin C] 500 mg PO DAILY 05/14/16 [History] Calcium Carbonate [Calcium] 600 mg PO DAILY 05/14/16 [History] Omeprazole 20 mg PO DAILY 05/14/16 [History] Pravastatin [Pravachol] 40 mg PO DAILY 05/14/16 [History] amLODIPine Besylate [Amlodipine Besylate] 5 mg PO DAILY 05/14/16 [History] Naproxen 500 mg PO BID 04/16/18 [History] Metoprolol Tartrate 12.5 mg PO BID 09/04/18 [History] Latanoprost 1 drop EYEBOTH DAILY 12/29/18 [History] Aspirin 81 mg PO DAILY 06/07/19 [History] Magnesium Oxide 400 mg PO DAILY 05/07/20 [History] Potassium Chloride 20 meq PO DAILY 05/07/20 [History] Triamterene/Hydrochlorothiazid [Dyazide 37.5-25 Capsule] 1 tab PO DAILY 05/07/20 [History] Past Medical History HEENT History: Reports: Cataract, Hard of Hearing, Impaired Vision, Macular Degeneration Cardiovascular History: Reports: Heart Murmur, High Cholesterol, Hypertension, Other (See Below) Other Cardiovascular History: "heart stopped during tear duct surgery due to pre-op muscle relaxant -40 years ago" Respiratory History: Reports: Bronchitis, Recurrent, Intubation, Previous, Pneumonia, Recurrent Gastrointestinal History: Reports: Colon Polyp, Gastritis, GERD Genitourinary History: Reports: Urinary Incontinence [employer] History: Reports: Dysfunctional Uterine Bleeding, , Spontaneous Musculoskeletal History: Reports: Osteoarthritis Other Musculoskeletal History: R shoulder pain. R knee pain. R leg pain Neurological History: Reports: None Psychiatric History: Reports: Anxiety Endocrine/Metabolic History: Reports: None Hematologic History: Reports: Anesthesia Reaction, Blood Transfusion(s) Immunologic History: Reports: None Oncologic (Cancer) History: Reports: None Dermatologic History: Reports: None - Infectious Disease History Infectious Disease History: Reports: Chicken Pox, Measles, Mumps, Pertussis (Whooping Cough) - Past Surgical History Head Surgeries/Procedures: Reports: None HEENT Surgical History: Reports: Cataract Surgery, Other (See Below) Other HEENT Surgeries/Procedures: attempted new tear duct but didn't work" Cardiovascular Surgical History: Reports: None Respiratory Surgical History: Reports: None GI Surgical History: Reports: Colonoscopy Female Surgical History: Reports: Breast Biopsy, D&C, Oophorectomy, Tubal Ligation Neurological Surgical History: Reports: None Musculoskeletal Surgical History: Reports: Arthroscopic Knee, Knee Replacement, Shoulder Surgery, Other (See Below) Other Musculoskeletal Surgeries/Procedures:: Left knee Dermatological Surgical History: Reports: Other (See Below) Social & Family History - Family History Family Medical History: No Pertinent Family History - Tobacco Use Tobacco Use Status *Q: Never Tobacco User - Caffeine Use Caffeine Use: Reports: Coffee H&P Review of Systems - Review of Systems: Review Of Systems: See Below General: Reports: No Symptoms Pulmonary: Reports: Shortness of Breath. Denies: Wheezing, Pleuritic Chest Pain, Cough, Sputum, Hemoptysis Cardiovascular: Reports: Chest Pain (Chest wall pain), Dyspnea on Exertion. Denies: Palpitations, Orthopnea, PND, Edema, Lightheadedness Gastrointestinal: Reports: No Symptoms Genitourinary: Reports: No Symptoms Musculoskeletal: Reports: No Symptoms Skin: Reports: No Symptoms Psychiatric: Reports: No Symptoms Neurological: Reports: No Symptoms Hematologic/Lymphatic: Reports: No Symptoms Immunologic: Reports: No Symptoms Exam - Exam Exam: See Below - Vital Signs Vital Signs: Last Vital Signs Temp 98.4 F 06/02/20 16:41 Pulse 85 06/02/20 18:04 Resp 14 06/02/20 18:04 BP 147/70 H 06/02/20 18:04 Pulse Ox 91 L 06/02/20 18:04 Weight: 116 lb - Exam Quality Assessment: DVT Prophylaxis General: Alert, Oriented, Cooperative, Moderate Distress HEENT: Conjunctiva Clear, Hearing Intact, Mucosa Moist & [place], Normal Nasal Septum, Posterior Pharynx Clear, Pupils Equal Neck: Supple, Trachea Midline, +2 Carotid Pulse wo Bruit Lungs: Clear to Auscultation, Normal Respiratory Effort, Other (Tenderness to palpation right chest wall) Cardiovascular: Regular Rate, Regular Rhythm, Normal S1, Normal S2. No: Systolic Murmur, Diastolic Murmur GI/Abdominal Exam: Soft, Non-Tender, No Organomegaly, No Distention Extremities: Non-Tender, No Pedal Edema Skin: Warm, Dry, Intact Neurological: Cranial Nerves Intact, Strength Equal Bilateral, Normal Speech, Normal Tone, Sensation Intact. No: Focal Deficit Neuro Extensive - Mental Status: Alert, Oriented x3, Normal Mood/Affect, Normal Cognition, Memory Intact - Patient Data Lab Results Last 24 hrs: Laboratory Results - last 24 hr 06/02/20 06/02/20 Range/Units 17:19 17:19 WBC 9.3 (4.5-11.0) K/uL RBC 4.36 (3.30-5.50) M/uL Hgb 14.2 D (12.0-15.0) g/dL Hct 42.8 (36.0-48.0) % MCV 98 (80-98) fL MCH 33 H (27-31) pg MCHC 33 (32-36) % Plt Count 281 (150-400) K/uL Neut % (Auto) 88 H (36-66) % Lymph % (Auto) 6 L (24-44) % [place] % (Auto) 5 (2-6) % Eos % (Auto) 0 L (2-4) % Baso % (Auto) 0 (0-1) % Sodium 139 L (140-148) mmol/L Potassium 3.0 L (3.6-5.2) mmol/L Chloride 101 (100-108) mmol/L Carbon Dioxide 26 (21-32) mmol/L Anion Gap 15.0 H (5.0-14.0) mmol/L BUN 13 D (7-18) mg/dL Creatinine 0.6 (0.5-1.0) mg/dL Est Cr Clr Drug Dosing 50.79 mL/min Estimated GFR (MDRD) > 60 (>60) BUN/Creatinine Ratio Not Reportable Glucose 134 H (74-106) mg/dL Calcium 9.2 (8.5-10.1) mg/dL Total Bilirubin 0.6 (0.2-1.0) mg/dL AST 20 (15-37) U/L ALT 20 (12-78) U/L Alkaline Phosphatase 73 (46-116) U/L Total Protein 7.4 (6.4-8.2) g/dL Albumin 3.7 (3.4-5.0) g/dL Globulin 3.7 H (2.3-3.5) g/dL Albumin/Globulin Ratio 1.0 L (1.2-2.2) Result Diagrams: 06/02/20 17:19 06/02/20 17:19 Sepsis Event Note - Evaluation Sepsis Screening Result: No Definite Risk - Focused Exam Vital Signs: Vital Signs Temp Pulse Resp BP Pulse Ox 06/02/20 18:04 85 14 147/70 H 91 L 06/02/20 16:41 98.4 F 95 16 171/78 H 96 06/02/20 16:31 98.4 F 95 16 171/78 H 96 *Q Meaningful Use (ADM) - VTE *Q VTE Pharmacological Contraindications *Q: Risk of Bleeding - VTE Risk Assess *Q Each Risk Factor Represents 1 Point: None Total Score 1 Point Risk Factors: 0 Each Risk Factor Represents 2 Points: None Total Score 2 Point Risk Factors: 0 Each Risk Factor Represents 3 Points: Age 75 Years or Greater Total Score 3 Point Risk Factors: 3 Each Risk Factor Represents 5 Points: Multiple Trauma, Less than 1 Month Total Score 5 Point Risk Factors: 5 Venous Thromboembolism Risk Factor Score *Q: 8 Problem List Initiated/Reviewed/Updated: Yes Orders Last 24hrs: Active Orders 24 hr Category Date Time Status Patient Status [ADT] Routine ADT 06/02/20 18:13 Ordered Ambulate [RC] QID Care 06/02/20 18:13 Ordered Cardiac Monitoring [RC] .As Directed Care 06/02/20 18:15 Ordered EKG Documentation Completion [RC] ASDIRECTED Care 06/02/20 17:05 Active Height and Weight [RC] DAILY Care 06/02/20 18:13 Ordered Intake and Output [RC] QSHIFT Care 06/02/20 18:13 Ordered Notify Provider Consults [RC] ASDIRECTED Care 06/02/20 18:18 Ordered Notify Provider Vital Signs [RC] ASDIRECTED Care 06/02/20 18:13 Ordered Oxygen Therapy [RC] PRN Care 06/02/20 18:13 Ordered Peripheral IV Care [RC] . DIRECTED Care 06/02/20 18:16 Ordered Pulse Oximetry [RC] CONTINUOUS Care 06/02/20 18:15 Ordered RT Aerosol Therapy [RC] ASDIRECTED Care 06/02/20 18:17 Ordered Up With Assistance [RC] ASDIRECTED Care 06/02/20 18:13 Ordered Up to Chair [RC] QID Care 06/02/20 18:13 Ordered VTE/DVT Education [RC] Per Unit Routine Care 06/02/20 18:13 Ordered Vital Signs [RC] Q4H Care 06/02/20 18:13 Ordered Consult to Physician [CONS] Routine Cons 06/02/20 18:13 Ordered PT Evaluation and Treatment [CONS] Routine Cons 06/02/20 18:13 Ordered 2 Gram Sodium Diet [DIET] Diet 06/02/20 Dinner Ordered Cervical Spine wo Cont [CT] Stat Exams 06/02/20 17:07 Taken Chest 1V Frontal [CR] Stat Exams 06/02/20 16:47 Taken Chest Abdomen Pelvis w Cont [CT] Stat Exams 06/02/20 17:07 Taken Head wo Cont [CT] Stat Exams 06/02/20 17:07 Taken BASIC METABOLIC PANEL,BMP [CHEM] AM Lab 06/03/20 05:11 Ordered CBC WITH AUTO DIFF [HEME] AM Lab 06/03/20 05:11 Ordered MAGNESIUM [CHEM] AM Lab 06/03/20 05:11 Ordered Acetaminophen [TylenoL] Med 06/02/20 18:13 Ordered 650 mg PO Q4H PRN Albuterol [Proventil Neb Soln] Med 06/02/20 18:13 Ordered 2.5 mg NEB Q4H PRN HYDROmorphone [Dilaudid] Med 06/02/20 18:18 Ordered 0.25 mg IVPUSH Q2H PRN Iopamidol [Isovue-300 (61%)] Med 06/02/20 17:30 Active 94 ml IV . DIRECTED Latanoprost [Xalatan 0.005% Ophth Soln] Med 06/03/20 09:00 Ordered 1 drop EYEBOTH DAILY Magnesium Oxide Med 06/03/20 09:00 Ordered 400 mg PO DAILY Metoprolol Tartrate [Lopressor] Med 06/02/20 21:00 Ordered 12.5 mg PO BID Omeprazole [Omeprazole] Med 06/03/20 09:00 Ordered 20 mg PO DAILY Ondansetron [Zofran] Med 06/02/20 18:13 Ordered 4 mg IV Q4H PRN Potassium Chloride Med 06/03/20 09:00 Ordered 20 meq PO DAILY Potassium Chloride Riders [KCL in Water 40 MEQ/100 ML] Med 06/02/20 18:12 Ordered 40 meq Premix Bag 1 bag IV ONETIME Pravastatin [Pravachol] Med 06/03/20 09:00 Ordered 40 mg PO DAILY Sodium Chloride 0.9% [Normal Saline] 1,000 ml Med 06/02/20 17:15 Active IV ASDIRECTED Sodium Chloride 0.9% [Normal Saline] 1,000 ml Med 06/02/20 18:15 Ordered IV ASDIRECTED Sodium Chloride 0.9% [Normal Saline] 71 ml Med 06/02/20 17:30 Active IV ASDIRECTED Sodium Chloride 0.9% [Saline Flush] Med 06/02/20 17:04 Active 10 ml FLUSH ASDIRECTED PRN Sodium Chloride 0.9% [Saline Flush] Med 06/02/20 18:13 Ordered 10 ml FLUSH ASDIRECTED PRN Triamterene/Hydrochlorothiazid [Dyazide 37.5-25 Capsule Med 06/03/20 09:00 Ordered ] 1 tab PO DAILY amLODIPine [Norvasc] Med 06/03/20 09:00 Ordered 5 mg PO DAILY fentaNYL [Sublimaze] Med 06/02/20 17:05 Active 50 mcg IVPUSH ONETIME PRN oxyCODONE Med 06/02/20 18:13 Ordered 5 mg PO Q4H PRN polyethylene glycoL 3350 [MiraLAX] Med 06/02/20 18:13 Ordered 17 gm PO DAILY PRN Peripheral IV Insertion Adult [OM.PC] Routine Oth 06/02/20 18:13 Ordered Saline Lock Insert [OM.PC] Stat Oth 06/02/20 17:05 Ordered Sequential Compression Device [OM.PC] Per Unit Routine Oth 06/02/20 18:15 Ordered VTE Pharmacological Contraindications [AST] Per Unit Oth 06/02/20 18:13 O rdered Routine Resuscitation Status Routine Resus Stat 06/02/20 18:13 Ordered EKG 12 Lead [EK] Stat Ther 06/02/20 17:05 Ordered Medication Orders Fentanyl (Sublimaze) 50 mcg IVPUSH ONETIME PRN PRN Reason: Pain (severe 7-10) Last Admin: 06/02/20 17:16 Dose: 50 mcg Documented by: COLIN Sodium Chloride (Normal Saline) 1,000 mls @ 999 mls/hr IV ASDIRECTED [facility] Last Admin: 06/02/20 17:58 Dose: 500 mls/hr Documented by: COLIN Sodium Chloride (Normal Saline) 71 mls @ 3 mls/sec IV ASDIRECTED [facility] Last Admin: 06/02/20 17:44 Dose: 3 mls/sec Documented by: THELASH Potassium Chloride 40 meq/ (Premix) 100 mls @ 25 mls/hr IV ONETIME ONE Stop: 06/02/20 22:11 Iopamidol (Isovue-300 (61%)) [address] [facility] Last Admin: 06/02/20 17:49 Dose: 94 ml Documented by: THELASH Sodium Chloride (Saline Flush) 10 ml FLUSH ASDIRECTED PRN PRN Reason: Keep Vein Open Last Admin: 06/02/20 18:00 Dose: 10 ml Documented by: COLIN Assessment/Plan Comment:: ASSESSMENT AND PLAN MULTIPLE RIGHT CHEST RIB FRACTURES-associated with small pneumothorax. -Pain medication as needed -Consult Dr. Machado for surgical follow-up -Vigorous pulmonary toilet RIGHT PNEUMOTHORAX-secondary to recent trauma with a fall and multiple rib fractures -Daily chest x-ray -Follow-up per Dr. Machado -Supplemental oxygen HYPERTENSION -Continue outpatient medical therapy MAINTENANCE ISSUES -DVT prophylaxis; SCUDs, hold on anticoagulation because of risk of bleeding -GI prophylaxis; continue outpatient PPI -[place] catheter; not indicated -Nutrition; 2 g sodium diet -Nicotine dependence; not required CODE STATUS-DNR/DNI ADMISSION STATUS-patient will be admitted to inpatient status, expect at least a 2 night hospital stay for evaluation and management of problems as outlined above. At the time of this admission I do not reasonably expected evaluation and management of this problem will require more than a 96 hour hospital stay. DISPOSITION-anticipate discharge to home after the hospital stay. PRIMARY CARE PROVIDER-Dr. Hua - Mortality Measure Prognosis:: Poor
--- NOTE | 2020-06-02 18:35 | CRLCT ---
INDICATION: TRAUMA CT CERVICAL SPINE WITHOUT CONTRAST TECHNIQUE: Multidetector axial CT imaging was performed through the cervical spine, without contrast. Sagittal and coronal reconstructions were generated. FINDINGS: No acute fractures are identified in the cervical spine. Multilevel degenerative change is noted in the cervical spine, including degenerative disc disease at C3-4 through C6-7, and scattered facet joint degenerative changes. Osseous alignment is within normal limits and no subluxation is seen. Prevertebral soft tissues are unremarkable. Included portions of the airway are within normal limits. Included portions of the upper chest show upper right rib fractures and a tiny right apical pneumothorax, further evaluated by concurrently performed chest CT. IMPRESSION: 1. No fracture, subluxation, or other acute finding identified in the cervical spine. 2. Cervical spondylosis, as noted above. PAULO TAYLOR MD [facility] Dictated by Armand Taylor MD @ 06/02/2020 6:32:52 PM Dictated by: Armand Taylor MD @ 06/02/2020 18:33:33 (Electronically Signed)
--- NOTE | 2020-06-02 18:37 | CRLCT ---
INDICATION: TRAUMA CT HEAD WITHOUT CONTRAST TECHNIQUE: Multiple axial CT images were performed through the head without intravenous contrast administration. COMPARISON: No previous studies are currently available for comparison. FINDINGS: No acute intracranial hemorrhage is identified. No extra-axial collections are evident and there is no mass effect or midline shift. There is mild diffuse age-related brain atrophy. Ventricular size and configuration are within normal limits for the patient`s age. Nolan-white differentiation is within normal limits. There is very mild patchy hypodensity in the periventricular white matter, a nonspecific finding which most likely reflects chronic small vessel ischemic change. Mild intracranial atherosclerotic vascular calcifications are noted. No acute fractures are seen. Included portions of the paranasal sinuses and mastoid air cells are normally aerated. IMPRESSION: 1. No acute intracranial abnormality identified. 2. Mild age-related brain atrophy, white matter hypodensity consistent with chronic small vessel ischemic change, and intracranial atherosclerotic vascular calcifications. PAULO TAYLOR MD [facility] Dictated by: Armand Taylor MD @ 06/02/2020 18:35:57 (Electronically Signed)
--- NOTE | 2020-06-02 19:21 | CRLCT ---
INDICATION: Fall, rib fractures TECHNIQUE: CT chest, abdomen and pelvis acquired with IV contrast. Approximately 94 cc of Isovue-300 contrast was administered intravenously. COMPARISON: None. FINDINGS: Chest: There are mildly displaced fractures the posterior 2nd, 3rd, 4th, 5th, 6th, 7th, 8th, and 9th posterior ribs. There is a is small right pneumothorax, approximately 10 percent. There is a trace right pleural effusion. There is a moderate left hiatal hernia with compressive atelectasis of the right lower lobe. There is atelectasis or scarring within the left lower lobe. Negative for focal consolidation, pleural effusion or left pneumothorax. The heart is normal in size. There is no shift of the mediastinum. No suspicious mediastinal, hilar or axillary adenopathy. Abdomen and Pelvis: The liver, spleen, pancreas and adrenal glands are unremarkable. The gallbladder is nondistended. The kidneys enhance symmetrically without hydronephrosis. Negative for intraperitoneal free air fluid. No dilated loops of small bowel are seen to suggest obstruction. There is scattered colonic diverticuli without adjacent inflammatory change. The bladder is partially distended and unremarkable. Multilevel degenerative changes are present within the spine. No additional fractures visualized. IMPRESSION: 1. Mildly displaced fractures of the posterior right 2nd through 9th ribs. Associated small right pneumothorax and trace right pleural effusion. 2. Moderate hiatal hernia with compressive atelectasis of the right lower lobe. 3. No acute abnormality within the abdomen and pelvis. Dictated by Soni Jensen MD @ 06/02/2020 7:18:50 PM Please note that all CT scans at this facility use dose modulation, iterative reconstruction, and/or weight-based dosing when appropriate to reduce radiation dose to as low as reasonably achievable. Dictated by: Soni Jensen MD @ 06/02/2020 19:19:16 (Electronically Signed)
[2020-06-02] MEDS: Sodium Chloride 0.9% 1,000 ML IV SCH (20:30)
[2020-06-02] MEDS ORDERED: Potassium Chloride 20 MEQ Tab.ER ONE (20:34)
[2020-06-02] MEDS ORDERED: Metoprolol Tartrate 25 MG Tab ONE (20:35)
[2020-06-02] MEDS: oxyCODONE 5 MG Tab PO PRN (20:55)
[2020-06-02] MEDS: Metoprolol Tartrate 25 MG Tab PO SCH (20:56)
[2020-06-02] MEDS: Naproxen 250 MG Tab PO SCH (21:02)
[2020-06-02] MEDS: Latanoprost 0.005% Ophth Soln 2.5 ML Bottle EYEBOTH SCH (22:51)
[2020-06-03] MEDS: oxyCODONE 5 MG Tab PO PRN ×4 (00:55→20:46)
[2020-06-03] MEDS ORDERED: Magnesium Sulfate/Water 2 GM/50 ML BAG IV ONE (06:00)
[2020-06-03] MEDS: Pantoprazole 40 MG Tab.CR PO SCH (07:56)
[2020-06-03] MEDS: Magnesium Oxide 400 MG Tab PO SCH ×2 (08:01→21:28)
[2020-06-03] MEDS: Potassium Chloride 10 MEQ Cap.ER PO SCH (08:02)
[2020-06-03] MEDS: Naproxen 250 MG Tab PO SCH ×2 (08:05→21:21)
[2020-06-03] MEDS: amLODIPine 5 MG Tab PO SCH (08:06)
[2020-06-03] MEDS: Metoprolol Tartrate 25 MG Tab PO SCH ×2 (08:07→21:21)
--- NOTE | 2020-06-03 08:20 | CRLCR ---
INDICATION: Follow-up pneumothorax. TECHNIQUE: AP portable chest x-ray. COMPARISON: Chest x-ray and CT yesterday. FINDINGS: Large hiatal hernia accounts for the large amount of density in the lower chest right greater than left. Infiltrate and atelectasis in the right mid and lower lung adjacent to the hiatal hernia persists. Multiple mild to moderately displaced acute right posterior and posterior lateral rib fractures persist. Right-sided pneumothorax which is greater than small in size but has not greatly changed in size. Patchy infiltrate or atelectasis in the left lower lobe. Very small right pleural effusion not as appreciable today. Heart size stable. Moderate aortic calcification. Moderately advanced right greater than left degenerative arthritis in the shoulders. Chest otherwise unremarkable. Dictated by Amauri Murray MD @ Jun 03 2020 8:17AM Signed by Dr. Amauri Murray @ Jun 03 2020 8:18AM
[2020-06-03] MEDS ORDERED: Latanoprost 0.005% Ophth Soln 2.5 ML Bottle EYEBOTH SCH (09:00)
[2020-06-03] MEDS ORDERED: Magnesium Oxide 400 MG Tab PO SCH (09:00)
[2020-06-03] MEDS ORDERED: Non-Formulary Medication 1 Each (Omeprazole [Omeprazole] 20 MG) PO SCH (09:00)
--- NOTE | 2020-06-03 10:20 | PCM.PN ---
- General Info Date of Service: 06/03/20 Subjective Update: Ms. Smyth has remained fairly stable since admission last night. Experiences significant right chest wall pain with any movement, but is fairly comfortable at rest. Vital signs have been stable and she has remained afebrile. Chest x- ray from this morning shows that the pneumothorax is stable in size. Functional Status: Reports: Tolerating Diet, Urinating - Review of Systems General: Reports: Weakness, Fatigue. Denies: Fever, Chills Pulmonary: Reports: Shortness of Breath. Denies: Pleuritic Chest Pain, Cough, Sputum, Hemoptysis, Wheezing Cardiovascular: Reports: Chest Pain (Chest wall pain), Dyspnea on Exertion. Denies: Palpitations, Orthopnea, PND, Edema, Lightheadedness Gastrointestinal: Reports: No Symptoms - Patient Data Vitals - Most Recent: Last Vital Signs Temp 98.1 F 06/03/20 08:00 Pulse 68 06/03/20 08:07 Resp 15 06/03/20 08:00 BP 145/67 H 06/03/20 08:07 Pulse Ox 96 06/03/20 08:00 Weight - Most Recent: 255 lb 11.779 oz I&O - Last 24 Hours: Intake & Output 06/02/20 06/03/20 06/03/20 22:59 06:59 14:59 Intake Total 180 648 Output Total 300 300 Balance -120 648 -300 Lab Results Last 24 Hours: Laboratory Results - last 24 hr 06/02/20 06/02/20 06/03/20 Range/Units 17:19 17:19 04:25 WBC 9.3 7.0 (4.5-11.0) K/uL RBC 4.36 3.64 (3.30-5.50) M/uL Hgb 14.2 D 12.2 D (12.0-15.0) g/dL Hct 42.8 36.5 (36.0-48.0) % MCV 98 100 H (80-98) fL MCH 33 H 34 H (27-31) pg MCHC 33 33 (32-36) % Plt Count 281 249 (150-400) K/uL Neut % (Auto) 88 H 73 H (36-66) % Lymph % (Auto) 6 L 17 L (24-44) % [place] % (Auto) 5 11 H (2-6) % Eos % (Auto) 0 L 0 L (2-4) % Baso % (Auto) 0 0 (0-1) % Sodium 139 L (140-148) mmol/L Potassium 3.0 L (3.6-5.2) mmol/L Chloride 101 (100-108) mmol/L Carbon Dioxide 26 (21-32) mmol/L Anion Gap 15.0 H (5.0-14.0) mmol/L BUN 13 D (7-18) mg/dL Creatinine 0.6 (0.5-1.0) mg/dL Est Cr Clr Drug Dosing 50.79 mL/min Estimated GFR (MDRD) > 60 (>60) BUN/Creatinine Ratio Not Reportable Glucose 134 H (74-106) mg/dL Calcium 9.2 (8.5-10.1) mg/dL Magnesium (1.8-2.4) mg/dL Total Bilirubin 0.6 (0.2-1.0) mg/dL AST 20 (15-37) U/L ALT 20 (12-78) U/L Alkaline Phosphatase 73 (46-116) U/L Total Protein 7.4 (6.4-8.2) g/dL Albumin 3.7 (3.4-5.0) g/dL Globulin 3.7 H (2.3-3.5) g/dL Albumin/Globulin Ratio 1.0 L (1.2-2.2) 06/03/20 Range/Units 04:25 WBC (4.5-11.0) K/uL RBC (3.30-5.50) M/uL Hgb (12.0-15.0) g/dL Hct (36.0-48.0) % MCV (80-98) fL MCH (27-31) pg MCHC (32-36) % Plt Count (150-400) K/uL Neut % (Auto) (36-66) % Lymph % (Auto) (24-44) % [place] % (Auto) (2-6) % Eos % (Auto) (2-4) % Baso % (Auto) (0-1) % Sodium 142 (140-148) mmol/L Potassium 4.3 (3.6-5.2) mmol/L Chloride 108 (100-108) mmol/L Carbon Dioxide 25 (21-32) mmol/L Anion Gap 9.1 (5.0-14.0) mmol/L BUN 12 (7-18) mg/dL Creatinine 0.6 (0.5-1.0) mg/dL Est Cr Clr Drug Dosing 50.79 mL/min Estimated GFR (MDRD) > 60 (>60) BUN/Creatinine Ratio Glucose 103 (74-106) mg/dL Calcium 8.7 (8.5-10.1) mg/dL Magnesium 1.7 L (1.8-2.4) mg/dL Total Bilirubin (0.2-1.0) mg/dL AST (15-37) U/L ALT (12-78) U/L Alkaline Phosphatase (46-116) U/L Total Protein (6.4-8.2) g/dL Albumin (3.4-5.0) g/dL Globulin (2.3-3.5) g/dL Albumin/Globulin Ratio (1.2-2.2) Med Orders - Current: Current Medications Acetaminophen (Tylenol) 650 mg PO Q4H PRN PRN Reason: Pain (Mild 1-3)/fever Albuterol (Proventil Neb Soln) 2.5 mg NEB Q4H PRN PRN Reason: Shortness Of Breath/wheezing Amlodipine Besylate (Norvasc) 5 mg PO DAILY REPLACED BY [facility] Last Admin: 06/03/20 08:06 Dose: 5 mg Documented by: Hydromorphone HCl (Dilaudid) 0.25 mg IVPUSH Q2H PRN PRN Reason: Pain (severe 7-10) Latanoprost (Xalatan 0.005% Ophth Soln) 0 ml EYEBOTH BEDTIME REPLACED BY [facility] Last Admin: 06/02/20 22:51 Dose: 1 drop Documented by: Magnesium Oxide (Magnesium Oxide) 400 mg PO BID REPLACED BY [facility] Last Admin: 06/03/20 08:01 Dose: 400 mg Documented by: Metoprolol Tartrate (Lopressor) 12.5 mg PO BID REPLACED BY [facility] Last Admin: 06/03/20 08:07 Dose: 12.5 mg Documented by: Naproxen (Naprosyn) 500 mg PO BID REPLACED BY [facility] Last Admin: 06/03/20 08:05 Dose: 500 mg Documented by: Ondansetron HCl (Zofran) 4 mg IV Q4H PRN PRN Reason: Nausea/Vomiting Oxycodone HCl (Oxycodone) 5 mg PO Q4H PRN PRN Reason: Pain (moderate 4-6) Last Admin: 06/03/20 05:19 Dose: 5 mg Documented by: Pantoprazole Sodium (Protonix) 40 mg PO ACBREAKFAST REPLACED BY [facility] Last Admin: 06/03/20 07:56 Dose: 40 mg Documented by: Polyethylene Glycol (Miralax) 17 gm PO DAILY PRN PRN Reason: Constipation Potassium Chloride (Potassium Chloride) 20 meq PO DAILY REPLACED BY [facility] Last Admin: 06/03/20 08:02 Dose: 20 meq Documented by: Pravastatin Sodium (Pravachol) 40 mg PO BEDTIME REPLACED BY [facility] Sodium Chloride (Saline Flush) 10 ml FLUSH ASDIRECTED PRN PRN Reason: Keep Vein Open Discontinued Medications Fentanyl (Sublimaze) 50 mcg IVPUSH ONETIME PRN PRN Reason: Pain (severe 7-10) Last Admin: 06/02/20 17:16 Dose: 50 mcg Documented by: Fentanyl (Sublimaze) 50 mcg IVPUSH ONETIME ONE Stop: 06/02/20 17:18 Last Admin: 06/02/20 17:58 Dose: 50 mcg Documented by: Sodium Chloride (Normal Saline) 1,000 mls @ 999 mls/hr IV ASDIRECTED REPLACED BY [facility] Last Admin: 06/02/20 17:58 Dose: 500 mls/hr Documented by: Sodium Chloride (Normal Saline) 71 mls @ 3 mls/sec IV ASDIRECTED REPLACED BY [facility] Last Admin: 06/02/20 17:44 Dose: 3 mls/sec Documented by: Potassium Chloride 40 meq/ (Premix) 100 mls @ 25 mls/hr IV ONETIME ONE Stop: 06/02/20 22:11 Last Admin: 06/02/20 20:57 Dose: 25 mls/hr Documented by: Sodium Chloride (Normal Saline) 1,000 mls @ 75 mls/hr IV ASDIRECTED REPLACED BY [facility] Last Admin: 06/02/20 20:30 Dose: 75 mls/hr Documented by: Magnesium Sulfate (Magnesium Sulfate In Water 2 Gm/50 Ml) 2 gm in 50 mls @ 12.5 mls/hr IV ONETIME ONE Stop: 06/03/20 09:59 Last Admin: 06/03/20 06:10 Dose: 12.5 mls/hr Documented by: Iopamidol (Isovue-300 (61%)) 94 ml IV . DIRECTED REPLACED BY [facility] Last Admin: 06/02/20 17:49 Dose: 94 ml Documented by: Lidocaine HCl (Xylocaine-Mpf 1%) 4 ml INJECT ONETIME ONE Stop: 06/02/20 21:19 Last Admin: 06/02/20 21:22 Dose: 4 ml Documented by: Lidocaine HCl (Xylocaine-Mpf 1%) Confirm Administered Dose 5 ml .ROUTE .STK-MED ONE Stop: 06/02/20 21:20 Last Admin: 06/02/20 21:25 Dose: Not Given Documented by: Metoprolol Tartrate (Lopressor) Confirm Administered Dose 25 mg .ROUTE .STK-MED ONE Stop: 06/02/20 20:36 Last Admin: 06/02/20 21:23 Dose: Not Given Documented by: Non-Formulary Medication (Triamterene/Hydrochlorothiazid [Dyazide 37.5-25 Capsule]) 1 tab PO DAILY REPLACED BY [facility] Potassium Chloride (Klor-Con M20) 40 meq PO ONETIME ONE Stop: 06/02/20 18:13 Last Admin: 06/02/20 20:55 Dose: 40 meq Documented by: Potassium Chloride (Klor-Con M20) Confirm Administered Dose 40 meq .ROUTE .STK- MED ONE Stop: 06/02/20 20:35 Last Admin: 06/02/20 21:23 Dose: Not Given Documented by: Sodium Chloride (Saline Flush) 10 ml FLUSH ASDIRECTED PRN PRN Reason: Keep Vein Open Last Admin: 06/02/20 18:00 Dose: 10 ml Documented by: Sodium Chloride (Saline Flush) 10 ml FLUSH ONETIME ONE Stop: 06/02/20 17:29 Last Admin: 06/02/20 17:45 Dose: 10 ml Documented by: - Exam Quality Assessment: DVT Prophylaxis General: Alert, Oriented, Cooperative, Moderate Distress Lungs: Clear to Auscultation, Normal Respiratory Effort Cardiovascular: Regular Rate, Regular Rhythm, No Murmurs GI/Abdominal Exam: Soft, Non-Tender, No Organomegaly, No Distention Extremities: Non-Tender, No Pedal Edema - Patient Data Lab Results Last 24 hrs: Laboratory Results - last 24 hr 06/02/20 06/02/20 06/03/20 Range/Units 17:19 17:19 04:25 WBC 9.3 7.0 (4.5-11.0) K/uL RBC 4.36 3.64 (3.30-5.50) M/uL Hgb 14.2 D 12.2 D (12.0-15.0) g/dL Hct 42.8 36.5 (36.0-48.0) % MCV 98 100 H (80-98) fL MCH 33 H 34 H (27-31) pg MCHC 33 33 (32-36) % Plt Count 281 249 (150-400) K/uL Neut % (Auto) 88 H 73 H (36-66) % Lymph % (Auto) 6 L 17 L (24-44) % [place] % (Auto) 5 11 H (2-6) % Eos % (Auto) 0 L 0 L (2-4) % Baso % (Auto) 0 0 (0-1) % Sodium 139 L (140-148) mmol/L Potassium 3.0 L (3.6-5.2) mmol/L Chloride 101 (100-108) mmol/L Carbon Dioxide 26 (21-32) mmol/L Anion Gap 15.0 H (5.0-14.0) mmol/L BUN 13 D (7-18) mg/dL Creatinine 0.6 (0.5-1.0) mg/dL Est Cr Clr Drug Dosing 50.79 mL/min Estimated GFR (MDRD) > 60 (>60) BUN/Creatinine Ratio Not Reportable Glucose 134 H (74-106) mg/dL Calcium 9.2 (8.5-10.1) mg/dL Magnesium (1.8-2.4) mg/dL Total Bilirubin 0.6 (0.2-1.0) mg/dL AST 20 (15-37) U/L ALT 20 (12-78) U/L Alkaline Phosphatase 73 (46-116) U/L Total Protein 7.4 (6.4-8.2) g/dL Albumin 3.7 (3.4-5.0) g/dL Globulin 3.7 H (2.3-3.5) g/dL Albumin/Globulin Ratio 1.0 L (1.2-2.2) 06/03/20 Range/Units 04:25 WBC (4.5-11.0) K/uL RBC (3.30-5.50) M/uL Hgb (12.0-15.0) g/dL Hct (36.0-48.0) % MCV (80-98) fL MCH (27-31) pg MCHC (32-36) % Plt Count (150-400) K/uL Neut % (Auto) (36-66) % Lymph % (Auto) (24-44) % [place] % (Auto) (2-6) % Eos % (Auto) (2-4) % Baso % (Auto) (0-1) % Sodium 142 (140-148) mmol/L Potassium 4.3 (3.6-5.2) mmol/L Chloride 108 (100-108) mmol/L Carbon Dioxide 25 (21-32) mmol/L Anion Gap 9.1 (5.0-14.0) mmol/L BUN 12 (7-18) mg/dL Creatinine 0.6 (0.5-1.0) mg/dL Est Cr Clr Drug Dosing 50.79 mL/min Estimated GFR (MDRD) > 60 (>60) BUN/Creatinine Ratio Glucose 103 (74-106) mg/dL Calcium 8.7 (8.5-10.1) mg/dL Magnesium 1.7 L (1.8-2.4) mg/dL Total Bilirubin (0.2-1.0) mg/dL AST (15-37) U/L ALT (12-78) U/L Alkaline Phosphatase (46-116) U/L Total Protein (6.4-8.2) g/dL Albumin (3.4-5.0) g/dL Globulin (2.3-3.5) g/dL Albumin/Globulin Ratio (1.2-2.2) Result Diagrams: 06/03/20 04:25 06/03/20 04:25 Sepsis Event Note - Evaluation Sepsis Screening Result: No Definite Risk - Focused Exam Vital Signs: Vital Signs Temp Pulse Pulse Resp BP BP Pulse Ox 06/03/20 08:07 68 145/67 H 06/03/20 08:06 145/67 H 06/03/20 08:00 98.1 F 77 15 145/67 H 96 06/03/20 06:00 18 131/56 L 98 06/03/20 04:00 98.1 F 15 125/63 98 06/03/20 02:00 16 127/59 L 98 06/03/20 00:00 98.2 F 18 120/57 L 98 - Problem List Review Problem List Initiated/Reviewed/Updated: Yes - My Orders Last 24 Hours: My Active Orders 06/02/20 Dinner 2 Gram Sodium Diet [DIET] 06/02/20 18:13 Ambulate [RC] QID Height and Weight [RC] DAILY Intake and Output [RC] QSHIFT Notify Provider Vital Signs [RC] ASDIRECTED Oxygen Therapy [RC] PRN Up With Assistance [RC] ASDIRECTED Up to Chair [RC] QID Vital Signs [RC] Q2H Consult to Physician [CONS] Routine PT Evaluation and Treatment [CONS] Routine Acetaminophen [TylenoL] 650 mg PO Q4H PRN Albuterol [Proventil Neb Soln] 2.5 mg NEB Q4H PRN Ondansetron [Zofran] 4 mg IV Q4H PRN Sodium Chloride 0.9% [Saline Flush] 10 ml FLUSH ASDIRECTED PRN oxyCODONE 5 mg PO Q4H PRN polyethylene glycoL 3350 [MiraLAX] 17 gm PO DAILY PRN Peripheral IV Insertion Adult [OM.PC] Routine VTE Pharmacological Contraindications [AST] Per Unit Routine 06/02/20 18:15 Cardiac Monitoring [RC] Q6H Pulse Oximetry [RC] CONTINUOUS Sequential Compression Device [OM.PC] Per Unit Routine 06/02/20 18:16 Peripheral IV Care [RC] . DIRECTED 06/02/20 18:17 RT Aerosol Therapy [RC] ASDIRECTED 06/02/20 18:18 Notify Provider Consults [RC] ASDIRECTED HYDROmorphone [Dilaudid] 0.25 mg IVPUSH Q2H PRN 06/02/20 19:30 Incentive Spirometry [RT Incentive Spirometry] [RC] Q1HWA 06/02/20 19:31 Resuscitation Status Routine 06/02/20 21:00 Metoprolol Tartrate [Lopressor] 12.5 mg PO BID Naproxen [Naprosyn] 500 mg PO BID 06/02/20 21:45 Latanoprost [Xalatan 0.005% Ophth Soln] 0 ml EYEBOTH BEDTIME 06/02/20 21:51 Pressure Reduction Mattress [OM.PC] Routine 06/03/20 07:30 Pantoprazole [ProTONIX] 40 mg PO ACBREAKFAST 06/03/20 09:00 Magnesium Oxide 400 mg PO BID Potassium Chloride 20 meq PO DAILY amLODIPine [Norvasc] 5 mg PO DAILY 06/03/20 10:15 Convert IV to Saline Lock [OM.PC] Routine 06/03/20 10:16 Patient Status [ADT] Routine 06/03/20 21:00 Pravastatin [Pravachol] 40 mg PO BEDTIME 06/04/20 05:00 Chest 1V Frontal [CR] DAILY MAGNESIUM [CHEM] Timed 06/05/20 05:00 Chest 1V Frontal [CR] DAILY 06/06/20 05:00 Chest 1V Frontal [CR] DAILY 06/07/20 05:00 Chest 1V Frontal [CR] DAILY - Plan Plan:: ASSESSMENT AND PLAN MULTIPLE RIGHT CHEST RIB FRACTURES-associated with small pneumothorax. -Pain medication as needed -Surgical follow-up per Dr. Machado -Vigorous pulmonary toilet RIGHT PNEUMOTHORAX-secondary to recent trauma with a fall and multiple rib fractures. Pneumothorax appears to be stable in size since admission last night. -Daily chest x-ray -Follow-up per Dr. Machado -Supplemental oxygen HYPERTENSION -Continue outpatient medical therapy MAINTENANCE ISSUES -DVT prophylaxis; SCUDs, hold on anticoagulation because of risk of bleeding -GI prophylaxis; continue outpatient PPI -Peñaloza catheter; not indicated -Nutrition; 2 g sodium diet -Nicotine dependence; not required CODE STATUS-DNR/DNI ADMISSION STATUS-patient will be admitted to inpatient status, expect at least a 2 night hospital stay for evaluation and management of problems as outlined above. At the time of this admission I do not reasonably expected evaluation and management of this problem will require more than a 96 hour hospital stay. DISPOSITION-anticipate discharge to home after the hospital stay. PRIMARY CARE PROVIDER-Dr. Hua
[2020-06-03] MEDS: Sodium Chloride 0.9% 1,000 ML IV SCH (13:38)
[2020-06-03] MEDS ORDERED: Pravastatin 20 MG Tab PO SCH (21:00)
[2020-06-03] MEDS: Latanoprost 0.005% Ophth Soln 2.5 ML Bottle EYEBOTH SCH (21:22)
[2020-06-04] MEDS: oxyCODONE 5 MG Tab PO PRN ×3 (02:12→18:14)
[2020-06-04] MEDS: Pantoprazole 40 MG Tab.CR PO SCH (08:11)
[2020-06-04] MEDS: Metoprolol Tartrate 25 MG Tab PO SCH ×2 (08:12→18:15)
[2020-06-04] MEDS: amLODIPine 5 MG Tab PO SCH (08:13)
[2020-06-04] MEDS: Potassium Chloride 10 MEQ Cap.ER PO SCH (08:14)
[2020-06-04] MEDS: Magnesium Oxide 400 MG Tab PO SCH ×2 (08:14→18:17)
[2020-06-04] MEDS: Naproxen 250 MG Tab PO SCH ×2 (08:14→18:17)
[2020-06-04] MEDS: Docusate Sodium 100 MG Cap PO SCH ×2 (08:15→20:35)
[2020-06-04] MEDS: Bisacodyl 5 MG Tab PO SCH ×2 (08:15→20:35)
--- NOTE | 2020-06-04 08:24 | PN ---
DATE OF SERVICE: 06/04/2020 SUBJECTIVE: Becca states her pain is controlled. Vital signs have been stable. Her concern is getting constipated with narcotic pain medication. PHYSICAL EXAMINATION: GENERAL: Becca Smyth is a pleasant 85-year-old female. She is alert and orientated. VITAL SIGNS: TPR is 98.6, 75, 16, blood pressure 136/60. HEENT: Negative. NECK: Supple. HEART: Regular rate and rhythm. LUNGS: Clear. ABDOMEN: Not soft, nontender. EXTREMITIES: Without peripheral edema. ASSESSMENT: 1. Multiple right chest rib fractures associated with small pneumothorax. 2. Right pneumothorax secondary to recent trauma with a fall. 3. Hypertension. PLAN: 1. Rx Colace 100 mg p.o. b.i.d. 2. Dulcolax 10 mg tablets p.o. b.i.d. We will evaluate p.r.n. or in a.m. Noelle Eric PA-C /[id number]
--- NOTE | 2020-06-04 09:39 | CR ---
CHEST: Portable 06/02/2020 CLINICAL HISTORY:Trauma and rib fractures COMPARISON:None FINDINGS: Patient has multiple right rib fractures involving the second through eighth ribs and possibly the ninth.. The there is some paucity of markings in the apex and right midlung field consistent with pneumothorax. There is no shift of the mediastinum. There are atherosclerotic changes in the aorta. No significant pleural fluid is seen. IMPRESSION: Multiple acute displaced right rib fractures Small pneumothorax without mediastinal shift
--- NOTE | 2020-06-04 10:53 | PCM.PN ---
- General Info Date of Service: 06/04/20 Subjective Update: No acute events overnight. Pain control is acceptable but she still has a fair amount of pain especially with activity. Twisting of the torso and pushing or pulling with her arms seems to be the worst. Oral pain medications have been tolerable for the most part but IV medications give her significant nausea. She feels comfortable at rest and does not feel short of breath at rest. She does not currently require supplemental oxygen. Pneumothorax is stable on chest x- ray. Functional Status: Reports: Pain Controlled, Tolerating Diet - Review of Systems Cardiovascular: Reports: Chest Pain - Patient Data Vitals - Most Recent: Last Vital Signs Temp 37.0 C 06/04/20 07:00 Pulse 75 06/04/20 08:12 Resp 16 06/04/20 07:00 BP 136/60 06/04/20 08:13 Pulse Ox 99 06/04/20 07:26 Weight - Most Recent: 66.3 kg I&O - Last 24 Hours: Intake & Output 06/03/20 06/04/20 06/04/20 22:59 06:59 14:59 Intake Total 240 240 Output Total 400 300 Balance -160 -60 Lab Results Last 24 Hours: Laboratory Results - last 24 hr 06/04/20 Range/Units 05:00 Magnesium 1.8 (1.8-2.4) mg/dL Med Orders - Current: Current Medications Acetaminophen (Tylenol) 650 mg PO Q4H PRN PRN Reason: Pain (Mild 1-3)/fever Albuterol (Proventil Neb Soln) 2.5 mg NEB Q4H PRN PRN Reason: Shortness Of Breath/wheezing Amlodipine Besylate (Norvasc) 5 mg PO DAILY [facility] Last Admin: 06/04/20 08:13 Dose: 5 mg Documented by: Bisacodyl (Dulcolax) 10 mg PO BID [facility] Last Admin: 06/04/20 08:15 Dose: 10 mg Documented by: Docusate Sodium (Colace) 100 mg PO BID [facility] Last Admin: 06/04/20 08:15 Dose: 100 mg Documented by: Hydromorphone HCl (Dilaudid) 0.25 mg IVPUSH Q2H PRN PRN Reason: Pain (severe 7-10) Last Admin: 06/03/20 10:30 Dose: 0.25 mg Documented by: Latanoprost (Xalatan 0.005% Ophth Soln) 0 ml EYEBOTH BEDTIME [facility] Last Admin: 06/03/20 21:22 Dose: 1 drop Documented by: Magnesium Oxide (Magnesium Oxide) 400 mg PO BID@0900,1800 [facility] Last Admin: 06/04/20 08:14 Dose: 400 mg Documented by: Metoprolol Tartrate (Lopressor) 12.5 mg PO BID@0900,1800 [facility] Last Admin: 06/04/20 08:12 Dose: 12.5 mg Documented by: Naproxen (Naprosyn) 500 mg PO BID@0900,1800 [facility] Last Admin: 06/04/20 08:14 Dose: 500 mg Documented by: Ondansetron HCl (Zofran) 4 mg IV Q4H PRN PRN Reason: Nausea/Vomiting Last Admin: 06/03/20 12:00 Dose: 4 mg Documented by: Oxycodone HCl (Oxycodone) 5 mg PO Q4H PRN PRN Reason: Pain (moderate 4-6) Last Admin: 06/04/20 09:57 Dose: 5 mg Documented by: Pantoprazole Sodium (Protonix) 40 mg PO ACBREAKFAST [facility] Last Admin: 06/04/20 08:11 Dose: 40 mg Documented by: Polyethylene Glycol (Miralax) 17 gm PO DAILY PRN PRN Reason: Constipation Potassium Chloride (Potassium Chloride) 20 meq PO DAILY [facility] Last Admin: 06/04/20 08:14 Dose: 20 meq Documented by: Pravastatin Sodium (Pravachol) 40 mg PO DAILY@1800 [facility] Sodium Chloride (Saline Flush) 10 ml FLUSH ASDIRECTED PRN PRN Reason: Keep Vein Open Discontinued Medications Fentanyl (Sublimaze) 50 mcg IVPUSH ONETIME PRN PRN Reason: Pain (severe 7-10) Last Admin: 06/02/20 17:16 Dose: 50 mcg Documented by: Fentanyl (Sublimaze) 50 mcg IVPUSH ONETIME ONE Stop: 06/02/20 17:18 Last Admin: 06/02/20 17:58 Dose: 50 mcg Documented by: Sodium Chloride (Normal Saline) 1,000 mls @ 999 mls/hr IV ASDIRECTED [facility] Last Admin: 06/02/20 17:58 Dose: 500 mls/hr Documented by: Sodium Chloride (Normal Saline) 71 mls @ 3 mls/sec IV ASDIRECTED [facility] Last Admin: 06/02/20 17:44 Dose: 3 mls/sec Documented by: Potassium Chloride 40 meq/ (Premix) 100 mls @ 25 mls/hr IV ONETIME ONE Stop: 06/02/20 22:11 Last Admin: 06/02/20 20:57 Dose: 25 mls/hr Documented by: Sodium Chloride (Normal Saline) 1,000 mls @ 75 mls/hr IV ASDIRECTED [facility] Last Admin: 06/03/20 13:38 Dose: 75 mls/hr Documented by: Magnesium Sulfate (Magnesium Sulfate In Water 2 Gm/50 Ml) 2 gm in 50 mls @ 12.5 mls/hr IV ONETIME ONE Stop: 06/03/20 09:59 Last Admin: 06/03/20 06:10 Dose: 12.5 mls/hr Documented by: Iopamidol (Isovue-300 (61%)) 94 ml IV . DIRECTED [facility] Last Admin: 06/02/20 17:49 Dose: 94 ml Documented by: Lidocaine HCl (Xylocaine-Mpf 1%) 4 ml INJECT ONETIME ONE Stop: 06/02/20 21:19 Last Admin: 06/02/20 21:22 Dose: 4 ml Documented by: Lidocaine HCl (Xylocaine-Mpf 1%) Confirm Administered Dose 5 ml .ROUTE .STK-MED ONE Stop: 06/02/20 21:20 Last Admin: 06/02/20 21:25 Dose: Not Given Documented by: Magnesium Oxide (Magnesium Oxide) 400 mg PO BID [facility] Last Admin: 06/03/20 21:28 Dose: 400 mg Documented by: Metoprolol Tartrate (Lopressor) 12.5 mg PO BID [facility] Last Admin: 06/03/20 21:21 Dose: 12.5 mg Documented by: Metoprolol Tartrate (Lopressor) Confirm Administered Dose 25 mg .ROUTE .STK-MED ONE Stop: 06/02/20 20:36 Last Admin: 06/02/20 21:23 Dose: Not Given Documented by: Naproxen (Naprosyn) 500 mg PO BID [facility] Last Admin: 06/03/20 21:21 Dose: 500 mg Documented by: Non-Formulary Medication (Triamterene/Hydrochlorothiazid [Dyazide 37.5-25 Capsule]) 1 tab PO DAILY [facility] Potassium Chloride (Klor-Con M20) 40 meq PO ONETIME ONE Stop: 06/02/20 18:13 Last Admin: 06/02/20 20:55 Dose: 40 meq Documented by: Potassium Chloride (Klor-Con M20) Confirm Administered Dose 40 meq .ROUTE .STK- MED ONE Stop: 06/02/20 20:35 Last Admin: 06/02/20 21:23 Dose: Not Given Documented by: Pravastatin Sodium (Pravachol) 40 mg PO BEDTIME [facility] Last Admin: 06/03/20 21:21 Dose: 40 mg Documented by: Sodium Chloride (Saline Flush) 10 ml FLUSH ASDIRECTED PRN PRN Reason: Keep Vein Open Last Admin: 06/02/20 18:00 Dose: 10 ml Documented by: Sodium Chloride (Saline Flush) 10 ml FLUSH ONETIME ONE Stop: 06/02/20 17:29 Last Admin: 06/02/20 17:45 Dose: 10 ml Documented by: - Exam Quality Assessment: No: Supplemental Oxygen General: Alert, Oriented, Cooperative, No Acute Distress Lungs: Normal Respiratory Effort GI/Abdominal Exam: Soft, No Distention Extremities: No Pedal Edema Skin: Warm, Dry Psy/Mental Status: Alert, Normal Affect - Patient Data Lab Results Last 24 hrs: Laboratory Results - last 24 hr 06/04/20 Range/Units 05:00 Magnesium 1.8 (1.8-2.4) mg/dL Result Diagrams: 06/03/20 04:25 06/03/20 04:25 Sepsis Event Note - Evaluation Sepsis Screening Result: No Definite Risk - Focused Exam Vital Signs: Vital Signs Temp Temp Pulse Pulse Resp BP BP 06/04/20 08:13 136/60 06/04/20 08:12 75 136/60 06/04/20 07:26 06/04/20 07:00 37.0 C 75 16 136/60 06/04/20 02:25 37.3 C 75 16 153/65 H 06/04/20 00:51 Pulse Ox 06/04/20 08:13 06/04/20 08:12 06/04/20 07:26 99 06/04/20 07:00 98 06/04/20 02:25 99 06/04/20 00:51 99 - Problem List Review Problem List Initiated/Reviewed/Updated: Yes - My Orders Last 24 Hours: My Active Orders 06/04/20 10:52 Discontinue Telemetry Monitoring [Cardiac Monitoring Discontinue] [RC] Click to Edit 06/04/20 10:52 oxyCODONE 5 - 10 mg PO Q4H PRN 06/04/20 Lunch Regular Diet [DIET] 06/04/20 14:00 Acetaminophen [Tylenol Extra Strength] 1,000 mg PO TID - Plan Plan:: ASSESSMENT AND PLAN MULTIPLE RIGHT CHEST RIB FRACTURES-associated with small pneumothorax. -Scheduled acetaminophen -Oxycodone as needed for breakthrough pain -Surgical follow-up per Dr. Machado -Vigorous pulmonary toilet RIGHT PNEUMOTHORAX-secondary to recent trauma with a fall and multiple rib fractures. Pneumothorax stable on follow-up x-rays. No indication for chest tube as of now. -Daily chest x-ray -Follow-up per Dr. Machado -Supplemental oxygen HYPERTENSION-stable. -Continue outpatient medical therapy MAINTENANCE ISSUES -DVT prophylaxis; SCUDs, hold on anticoagulation because of risk of bleeding -GI prophylaxis; continue outpatient PPI -[place] catheter; not indicated -Nutrition; regular DISPOSITION-anticipate discharge to subacute rehab versus home with home care after the hospital stay. Hermelindo Aguilar MD
--- NOTE | 2020-06-04 11:04 | CR ---
CHEST: Portable 06/04/2020 at 4:03 AM CLINICAL HISTORY:Rib fractures, pneumothorax COMPARISON:06/03/2020 FINDINGS: Patient has multiple acute right rib fractures. There is a small pneumothorax similar to prior study. There is no shift of the mediastinum. Heart size and pulmonary vascularity are normal. Patient has a large hiatal hernia. Impression: Multiple acute displaced rib fractures Known pneumothorax similar to prior study. No shift of the mediastinum
[2020-06-04] MEDS: Acetaminophen 500 MG Tab PO SCH ×2 (13:14→20:34)
[2020-06-04] MEDS: Pravastatin 20 MG Tab PO SCH (18:17)
[2020-06-04] MEDS: Latanoprost 0.005% Ophth Soln 2.5 ML Bottle EYEBOTH SCH (20:34)
[2020-06-05] MEDS: oxyCODONE 5 MG Tab PO PRN ×4 (03:31→19:07)
[2020-06-05] MEDS: Docusate Sodium 100 MG Cap PO SCH ×2 (08:19→20:54)
[2020-06-05] MEDS: Naproxen 250 MG Tab PO SCH ×2 (08:19→17:19)
[2020-06-05] MEDS: Potassium Chloride 10 MEQ Cap.ER PO SCH (08:19)
[2020-06-05] MEDS: Metoprolol Tartrate 25 MG Tab PO SCH ×2 (08:19→17:18)
[2020-06-05] MEDS: Acetaminophen 500 MG Tab PO SCH ×3 (08:19→20:54)
[2020-06-05] MEDS: Bisacodyl 5 MG Tab PO SCH ×2 (08:20→20:54)
[2020-06-05] MEDS: amLODIPine 5 MG Tab PO SCH (08:20)
[2020-06-05] MEDS: Pantoprazole 40 MG Tab.CR PO SCH (08:20)
[2020-06-05] MEDS: Magnesium Oxide 400 MG Tab PO SCH ×2 (08:20→17:19)
--- NOTE | 2020-06-05 08:38 | PN ---
DATE OF SERVICE: 06/05/2020 SUBJECTIVE: Becca has been slightly confused and having quite a bit of pain with movement in her rib area. Vital signs have been stable. Temperature max of 100.1. Oral intake 1280. Urine output 1200 plus independent voiding. REVIEW OF SYSTEMS: Remainder of review of systems negative for any pertinent positives or negatives. OBJECTIVE: GENERAL: Becca Smyth is a pleasant 85-year-old female. She is confused. VITAL SIGNS: TPR 98.6, 76, 18, blood pressure 128/62. HEENT: Negative. NECK: Supple. HEART: Regular rate and rhythm. LUNGS: Clear. She does have pain with taking a deep breath. ABDOMEN: Soft, nontender. EXTREMITIES: Without peripheral edema. ASSESSMENT: 1. Multiple right chest rib fractures associated with small pneumothorax. 2. Right pneumothorax secondary to recent trauma with fall. 3. Hypertension. PLAN: 1. Continue same bowel regimen. 2. We will evaluate p.r.n. or in a.m. Noelle Eric PA-C /[id number]
--- NOTE | 2020-06-05 09:34 | CR ---
CHEST: Portable 06/05/2020 CLINICAL HISTORY:Rib fractures, pneumothorax COMPARISON:06/04/2020 FINDINGS: Patient has multiple displaced right upper rib fractures. The previously described pneumothorax is less well seen the current study. There may be some minimal lateral pneumothorax. Left lung remains clear. There is a large hiatal hernia. There is some patchy right basal atelectasis or consolidation. This has improved. IMPRESSION: Multiple right upper rib fractures Right pneumothorax is less well seen on current study and appears to be involuting
--- NOTE | 2020-06-05 09:56 | CONS ---
DATE OF SERVICE: 06/03/2020 REFERRING PHYSICIAN: CONSULTING PHYSICIAN: Avery Machado MD This is an 85-year-old female who fell now 3 days ago who had multiple right-sided rib fractures. She additionally had some scalp laceration stitched at her personal clinic, but then presented to the emergency room with increasing discomfort. The CT of abdomen and pelvis shows a large hiatal hernia and a small pneumothorax and some atelectasis/infiltrate in the right lung base. Otherwise, CT scan of the neck and head was unremarkable. She looks fairly comfortable, however, she is not having the cough too much, but we will continue to work with Pain Control along with Dr. Joe, and the pneumothorax has not changed appreciably overnight per the radiologist. Given this, we will not place a chest tube as it is quite small at this point and unlikely to enlarge significantly with amount of time having lapsed from the injury she will be continued on active pulmonary toilet and pain control. We will see the patient daily while she is in the hospital. Avery Machado MD /[id number]
--- NOTE | 2020-06-05 12:08 | PCM.PN ---
- General Info Date of Service: 06/05/20 Subjective Update: No acute events overnight. Chest x-ray today shows slight improvement in her pneumothorax. She still has a fair amount of pain across her chest with any activity but does okay when she is standing. She is comfortable when lying down as well. 1 low-grade fever last night but none since. She has not required oxygen. Blood pressure and heart rate have been stable. She is contemplating home with home care versus subacute rehab. Functional Status: Reports: Pain Controlled, Tolerating Diet - Review of Systems Cardiovascular: Reports: Chest Pain (with twisting or pulling ) - Patient Data Vitals - Most Recent: Last Vital Signs Temp 37.2 C 06/05/20 10:51 Pulse 78 06/05/20 10:51 Resp 18 06/05/20 10:51 BP 107/51 L 06/05/20 10:51 Pulse Ox 96 06/05/20 10:51 Weight - Most Recent: 66.3 kg I&O - Last 24 Hours: Intake & Output 06/04/20 06/05/20 06/05/20 22:59 06:59 14:59 Intake Total 740 300 420 Balance 740 300 420 Med Orders - Current: Current Medications Acetaminophen (Tylenol Extra Strength) 1,000 mg PO TID [facility] Last Admin: 06/05/20 08:19 Dose: 1,000 mg Documented by: Albuterol (Proventil Neb Soln) 2.5 mg NEB Q4H PRN PRN Reason: Shortness Of Breath/wheezing Amlodipine Besylate (Norvasc) 5 mg PO DAILY [facility] Last Admin: 06/05/20 08:20 Dose: 5 mg Documented by: Bisacodyl (Dulcolax) 10 mg PO BID [facility] Last Admin: 06/05/20 08:20 Dose: 10 mg Documented by: Docusate Sodium (Colace) 100 mg PO BID [facility] Last Admin: 06/05/20 08:19 Dose: 100 mg Documented by: Hydromorphone HCl (Dilaudid) 0.25 mg IVPUSH Q2H PRN PRN Reason: Pain (severe 7-10) Last Admin: 06/03/20 10:30 Dose: 0.25 mg Documented by: Latanoprost (Xalatan 0.005% Ophth Soln) 0 ml EYEBOTH BEDTIME [facility] Last Admin: 06/04/20 20:34 Dose: 1 drop Documented by: Magnesium Oxide (Magnesium Oxide) 400 mg PO BID@0900,1800 [facility] Last Admin: 06/05/20 08:20 Dose: 400 mg Documented by: Metoprolol Tartrate (Lopressor) 12.5 mg PO BID@0900,1800 [facility] Last Admin: 06/05/20 08:19 Dose: 12.5 mg Documented by: Naproxen (Naprosyn) 500 mg PO BID@0900,1800 [facility] Last Admin: 06/05/20 08:19 Dose: 500 mg Documented by: Ondansetron HCl (Zofran) 4 mg IV Q4H PRN PRN Reason: Nausea/Vomiting Last Admin: 06/03/20 12:00 Dose: 4 mg Documented by: Oxycodone HCl (Oxycodone) 5 - 10 mg PO Q4H PRN PRN Reason: Pain Last Admin: 06/05/20 09:44 Dose: 5 mg Documented by: Pantoprazole Sodium (Protonix) 40 mg PO ACBREAKFAST [facility] Last Admin: 06/05/20 08:20 Dose: 40 mg Documented by: Polyethylene Glycol (Miralax) 17 gm PO DAILY PRN PRN Reason: Constipation Potassium Chloride (Potassium Chloride) 20 meq PO DAILY [facility] Last Admin: 06/05/20 08:19 Dose: 20 meq Documented by: Pravastatin Sodium (Pravachol) 40 mg PO DAILY@1800 [facility] Last Admin: 06/04/20 18:17 Dose: 40 mg Documented by: Sodium Chloride (Saline Flush) 10 ml FLUSH ASDIRECTED PRN PRN Reason: Keep Vein Open Discontinued Medications Acetaminophen (Tylenol) 650 mg PO Q4H PRN PRN Reason: Pain (Mild 1-3)/fever Fentanyl (Sublimaze) 50 mcg IVPUSH ONETIME PRN PRN Reason: Pain (severe 7-10) Last Admin: 06/02/20 17:16 Dose: 50 mcg Documented by: Fentanyl (Sublimaze) 50 mcg IVPUSH ONETIME ONE Stop: 06/02/20 17:18 Last Admin: 06/02/20 17:58 Dose: 50 mcg Documented by: Sodium Chloride (Normal Saline) 1,000 mls @ 999 mls/hr IV ASDIRECTED [facility] Last Admin: 06/02/20 17:58 Dose: 500 mls/hr Documented by: Sodium Chloride (Normal Saline) 71 mls @ 3 mls/sec IV ASDIRECTED [facility] Last Admin: 06/02/20 17:44 Dose: 3 mls/sec Documented by: Potassium Chloride 40 meq/ (Premix) 100 mls @ 25 mls/hr IV ONETIME ONE Stop: 06/02/20 22:11 Last Admin: 06/02/20 20:57 Dose: 25 mls/hr Documented by: Sodium Chloride (Normal Saline) 1,000 mls @ 75 mls/hr IV ASDIRECTED [facility] Last Admin: 06/03/20 13:38 Dose: 75 mls/hr Documented by: Magnesium Sulfate (Magnesium Sulfate In Water 2 Gm/50 Ml) 2 gm in 50 mls @ 12.5 mls/hr IV ONETIME ONE Stop: 06/03/20 09:59 Last Admin: 06/03/20 06:10 Dose: 12.5 mls/hr Documented by: Iopamidol (Isovue-300 (61%)) 94 ml IV . DIRECTED [facility] Last Admin: 06/02/20 17:49 Dose: 94 ml Documented by: Lidocaine HCl (Xylocaine-Mpf 1%) 4 ml INJECT ONETIME ONE Stop: 06/02/20 21:19 Last Admin: 06/02/20 21:22 Dose: 4 ml Documented by: Lidocaine HCl (Xylocaine-Mpf 1%) Confirm Administered Dose 5 ml .ROUTE .STK-MED ONE Stop: 06/02/20 21:20 Last Admin: 06/02/20 21:25 Dose: Not Given Documented by: Magnesium Oxide (Magnesium Oxide) 400 mg PO BID [facility] Last Admin: 06/03/20 21:28 Dose: 400 mg Documented by: Metoprolol Tartrate (Lopressor) 12.5 mg PO BID [facility] Last Admin: 06/03/20 21:21 Dose: 12.5 mg Documented by: Metoprolol Tartrate (Lopressor) Confirm Administered Dose 25 mg .ROUTE .STK-MED ONE Stop: 06/02/20 20:36 Last Admin: 06/02/20 21:23 Dose: Not Given Documented by: Naproxen (Naprosyn) 500 mg PO BID [facility] Last Admin: 06/03/20 21:21 Dose: 500 mg Documented by: Non-Formulary Medication (Triamterene/Hydrochlorothiazid [Dyazide 37.5-25 Capsule]) 1 tab PO DAILY [facility] Oxycodone HCl (Oxycodone) 5 mg PO Q4H PRN PRN Reason: Pain (moderate 4-6) Last Admin: 06/04/20 09:57 Dose: 5 mg Documented by: Potassium Chloride (Klor-Con M20) 40 meq PO ONETIME ONE Stop: 06/02/20 18:13 Last Admin: 06/02/20 20:55 Dose: 40 meq Documented by: Potassium Chloride (Klor-Con M20) Confirm Administered Dose 40 meq .ROUTE .STK- MED ONE Stop: 06/02/20 20:35 Last Admin: 06/02/20 21:23 Dose: Not Given Documented by: Pravastatin Sodium (Pravachol) 40 mg PO BEDTIME [facility] Last Admin: 06/03/20 21:21 Dose: 40 mg Documented by: Sodium Chloride (Saline Flush) 10 ml FLUSH ASDIRECTED PRN PRN Reason: Keep Vein Open Last Admin: 06/02/20 18:00 Dose: 10 ml Documented by: Sodium Chloride (Saline Flush) 10 ml FLUSH ONETIME ONE Stop: 06/02/20 17:29 Last Admin: 06/02/20 17:45 Dose: 10 ml Documented by: - Exam Quality Assessment: No: Supplemental Oxygen General: Alert, Oriented, Cooperative, No Acute Distress Lungs: Normal Respiratory Effort GI/Abdominal Exam: Soft, No Distention Extremities: No Pedal Edema Skin: Warm, Dry Psy/Mental Status: Alert, Normal Affect - Patient Data Result Diagrams: 06/03/20 04:25 06/03/20 04:25 Sepsis Event Note - Evaluation Sepsis Screening Result: No Definite Risk - Focused Exam Vital Signs: Vital Signs Temp Pulse Pulse Resp BP BP Pulse Ox 06/05/20 10:51 37.2 C 78 18 107/51 L 96 06/05/20 08:20 128/62 06/05/20 08:19 76 128/62 06/05/20 07:00 37.0 C 76 18 128/62 96 06/05/20 03:32 36.6 C 76 18 117/66 96 - Problem List Review Problem List Initiated/Reviewed/Updated: Yes - My Orders Last 24 Hours: My Active Orders 06/04/20 Lunch Regular Diet [DIET] 06/04/20 14:00 Acetaminophen [Tylenol Extra Strength] 1,000 mg PO TID - Plan Plan:: ASSESSMENT AND PLAN MULTIPLE RIGHT CHEST RIB FRACTURES-associated with small pneumothorax. Pain fairly well controlled but still requiring some assistance to get into and out of bed. -Scheduled acetaminophen -Oxycodone as needed for breakthrough pain -Vigorous pulmonary toilet RIGHT PNEUMOTHORAX-secondary to recent trauma with a fall and multiple rib fractures. Pneumothorax stable on follow-up x-rays. No indication for chest tube as of now. -Supplemental oxygen if needed HYPERTENSION-stable. -Continue outpatient medical therapy MAINTENANCE ISSUES -DVT prophylaxis; SCUDs, hold on anticoagulation because of risk of bleeding -GI prophylaxis; continue outpatient PPI -Peñaloza catheter; not indicated -Nutrition; regular DISPOSITION-anticipate discharge to subacute rehab after the hospital stay. Hermelindo Aguilar MD
[2020-06-05] MEDS: Pravastatin 20 MG Tab PO SCH (17:19)
[2020-06-05] MEDS: Latanoprost 0.005% Ophth Soln 2.5 ML Bottle EYEBOTH SCH (20:54)
[2020-06-06] MEDS: oxyCODONE 5 MG Tab PO PRN ×2 (03:54→08:20)
[2020-06-06] MEDS ORDERED: Magnesium Hydroxide 400 MG/5 ML Susp 30 ML Cup PO ONE (06:39)
[2020-06-06] MEDS ORDERED: Magnesium Hydroxide 400 MG/5 ML Susp 30 ML Cup ONE (06:40)
[2020-06-06] MEDS: Pantoprazole 40 MG Tab.CR PO SCH (08:20)
[2020-06-06] MEDS: Acetaminophen 500 MG Tab PO SCH (08:20)
[2020-06-06] MEDS: Magnesium Oxide 400 MG Tab PO SCH (08:20)
[2020-06-06] MEDS: Potassium Chloride 10 MEQ Cap.ER PO SCH (08:20)
[2020-06-06] MEDS: amLODIPine 5 MG Tab PO SCH (08:20)
[2020-06-06] MEDS: Naproxen 250 MG Tab PO SCH (08:20)
[2020-06-06] MEDS: Bisacodyl 5 MG Tab PO SCH (08:20)
[2020-06-06] MEDS: Metoprolol Tartrate 25 MG Tab PO SCH (08:21)
[2020-06-06] MEDS: Docusate Sodium 100 MG Cap PO SCH (08:21)
--- NOTE | 2020-06-06 09:24 | PCM.DCSUM1 ---
Discharge Summary - Hospital Course Brief History: 85-year-old female with history of essential hypertension who presented with right chest pain after a fall at home. She was admitted for management of multiple right-sided rib fractures as well as a small right-sided pneumothorax. Diagnosis: Stroke: No - Discharge Data Discharge Date: 06/06/20 Discharge Disposition: DC/Tfer to SNF 03 Preliminary Cause of *Q: Cardiac Arrest Condition: Good - Referral to Home Health Primary Care Physician: Bhavesh Hua Sr, MD - Discharge Diagnosis/Problem(s) (1) Pneumothorax on right SNOMED Code(s): 878581208 ICD Code: J93.9 - PNEUMOTHORAX, UNSPECIFIED Status: Acute Current Visit: Yes (2) Ribs, multiple fractures SNOMED Code(s): 3436491 ICD Code: S22.49XA - MULTIPLE FRACTURES OF RIBS, UNSP SIDE, INIT FOR CLOS FX Status: Acute Current Visit: Yes Qualifiers: Encounter type: initial encounter Fracture type: closed Laterality: right Qualified Code(s): S22.41XA - Multiple fractures of ribs, right side, initial encounter for closed fracture (3) HTN (hypertension) SNOMED Code(s): 16392087 ICD Code: I10 - ESSENTIAL (PRIMARY) HYPERTENSION Status: Chronic Current Visit: No Qualifiers: Hypertension type: essential hypertension Qualified Code(s): I10 - Essential (primary) hypertension - Patient Summary/Data Consults: Consultations 06/02/20 18:13 Consult to Physician [CONS] Routine Consulting Provider: Avery Machadoesy Call Completed to Consulting Physician: Yes Reason for Consult: Multiple right-sided rib fractures, pneumothorax PT Evaluation and Treatment [CONS] Routine Please Evaluate and Treat. PT Reason for Consult: weakness This query below is only for informational purposes and is not editable. Hospital Course: Becca presented to the emergency room with severe right-sided chest pain after a fall at home. Imaging revealed 8 right-sided rib fractures as well as a small pneumothorax. Imaging of the cervical spine and head were unremarkable. She was admitted to the hospital for pain control as well as monitoring of her pneumothorax. Dr. Machado of the surgical team was consulted for additional monitoring with the pneumothorax. He felt that it was small enough that it could be watched and that a chest tube was not urgently needed. Over the next several days we did see slow but steady improvement in her clinical status. Her pneumothorax did remain stable and even slowly improved. Her pain control has improved with a combination of scheduled naproxen, scheduled acetaminophen and as needed oxycodone. She is moving better each day with her most difficult times being when she is trying to get into or out of bed. Vital signs have all been stable. She is not moving well enough to be safe at home alone at this time and would benefit from subacute rehab. The plan is for her to go to the halfway to get subacute rehab with the goal of going home with home care in the near future. I would anticipate she will need assistance for 1 to 2 weeks as her rib fractures heal. - Patient Instructions Diet: Regular Diet as Tolerated Activity: As Tolerated Showering/Bathing: May Shower Notify Provider of: Fever, Increased Pain Other/Special Instructions: 1. You were in the hospital for pain control with multiple rib fractures as well as monitoring of a small right pneumothorax. The pneumothorax has been improving with nonsurgical management and no additional follow-up is needed as long as your clinical condition remains stable. We are using scheduled acetaminophen and as needed oxycodone to control your pain along with your usual naproxen. 2. I have placed a referral to physical and occupational therapy. They will provide services in the subacute rehab facility to improve your strength and endurance. 3. Continue your usual home medications as previously prescribed. 4. Code status - DNR/DNI - Discharge Plan *PRESCRIPTION DRUG MONITORING PROGRAM REVIEWED*: No *COPY OF PRESCRIPTION DRUG MONITORING REPORT IN PATIENT CARRI: No Prescriptions/Med Rec: oxyCODONE 5 mg PO Q4H PRN #45 tablet PRN Reason: Pain Acetaminophen [Tylenol Extra Strength] 1,000 mg PO TID #180 tablet Home Medications: Home Meds Ascorbate Calcium [Vitamin C] 500 mg PO DAILY 05/14/16 [History] Calcium Carbonate [Calcium] 600 mg PO DAILY 05/14/16 [History] Omeprazole 20 mg PO DAILY 05/14/16 [History] Pravastatin [Pravachol] 40 mg PO DAILY 05/14/16 [History] amLODIPine Besylate [Amlodipine Besylate] 5 mg PO DAILY 05/14/16 [History] Naproxen 500 mg PO BID 04/16/18 [History] Metoprolol Tartrate 12.5 mg PO BID 09/04/18 [History] Latanoprost 1 drop EYEBOTH DAILY 12/29/18 [History] Aspirin 81 mg PO DAILY 06/07/19 [History] Magnesium Oxide 400 mg PO DAILY 05/07/20 [History] Potassium Chloride 20 meq PO DAILY 05/07/20 [History] Triamterene/Hydrochlorothiazid [Dyazide 37.5-25 Capsule] 1 tab PO DAILY 05/07/20 [History] Acetaminophen [Tylenol Extra Strength] 1,000 mg PO TID #180 tablet 06/06/20 [Rx] oxyCODONE 5 mg PO Q4H PRN #45 tablet 06/06/20 [Rx] Patient Handouts: Rib Fracture Referrals: Bhavesh Hua Sr, MD [Primary Care Provider] - (1-2 weeks - F/U hospital stay for rib fractures ) Avery Machado MD [Physician] - 06/13/20 10:00 am (Chest X Ray PA and Lat before appointment ) - Discharge Summary/Plan Comment DC Time >30 min.: Yes (40-new MD discharge ) - Patient Data Vitals - Most Recent: Last Vital Signs Temp 37.0 C 06/06/20 08:08 Pulse 80 06/06/20 08:21 Resp 18 06/06/20 08:08 BP 133/55 L 06/06/20 08:21 Pulse Ox 96 06/06/20 08:08 Weight - Most Recent: 64.455 kg I&O - Last 24 hours: Intake & Output 06/05/20 06/06/20 06/06/20 22:59 06:59 14:59 Intake Total 240 660 200 Balance 240 660 200 Med Orders - Current: Current Medications Acetaminophen (Tylenol Extra Strength) 1,000 mg PO TID [facility] Last Admin: 06/06/20 08:20 Dose: 1,000 mg Documented by: Albuterol (Proventil Neb Soln) 2.5 mg NEB Q4H PRN PRN Reason: Shortness Of Breath/wheezing Amlodipine Besylate (Norvasc) 5 mg PO DAILY [facility] Last Admin: 06/06/20 08:20 Dose: 5 mg Documented by: Bisacodyl (Dulcolax) 10 mg PO BID [facility] Last Admin: 06/06/20 08:20 Dose: 10 mg Documented by: Docusate Sodium (Colace) 100 mg PO BID [facility] Last Admin: 06/06/20 08:21 Dose: 100 mg Documented by: Hydromorphone HCl (Dilaudid) 0.25 mg IVPUSH Q2H PRN PRN Reason: Pain (severe 7-10) Last Admin: 06/03/20 10:30 Dose: 0.25 mg Documented by: Latanoprost (Xalatan 0.005% Ophth Soln) 0 ml EYEBOTH BEDTIME [facility] Last Admin: 06/05/20 20:54 Dose: 1 drop Documented by: Magnesium Oxide (Magnesium Oxide) 400 mg PO BID@0900,1800 [facility] Last Admin: 06/06/20 08:20 Dose: 400 mg Documented by: Metoprolol Tartrate (Lopressor) 12.5 mg PO BID@0900,1800 [facility] Last Admin: 06/06/20 08:21 Dose: 12.5 mg Documented by: Naproxen (Naprosyn) 500 mg PO BID@0900,1800 [facility] Last Admin: 06/06/20 08:20 Dose: 500 mg Documented by: Ondansetron HCl (Zofran) 4 mg IV Q4H PRN PRN Reason: Nausea/Vomiting Last Admin: 06/03/20 12:00 Dose: 4 mg Documented by: Oxycodone HCl (Oxycodone) 5 - 10 mg PO Q4H PRN PRN Reason: Pain Last Admin: 06/06/20 08:20 Dose: 5 mg Documented by: Pantoprazole Sodium (Protonix) 40 mg PO ACBREAKFAST [facility] Last Admin: 06/06/20 08:20 Dose: 40 mg Documented by: Polyethylene Glycol (Miralax) 17 gm PO DAILY PRN PRN Reason: Constipation Potassium Chloride (Potassium Chloride) 20 meq PO DAILY [facility] Last Admin: 06/06/20 08:20 Dose: 20 meq Documented by: Pravastatin Sodium (Pravachol) 40 mg PO DAILY@1800 [facility] Last Admin: 06/05/20 17:19 Dose: 40 mg Documented by: Sodium Biphosphate/Sodium Phosphate (Fleet Enema) 133 ml RECTAL ONETIME ONE Stop: 06/06/20 09:31 Sodium Chloride (Saline Flush) 10 ml FLUSH ASDIRECTED PRN PRN Reason: Keep Vein Open Discontinued Medications Acetaminophen (Tylenol) 650 mg PO Q4H PRN PRN Reason: Pain (Mild 1-3)/fever Fentanyl (Sublimaze) 50 mcg IVPUSH ONETIME PRN PRN Reason: Pain (severe 7-10) Last Admin: 06/02/20 17:16 Dose: 50 mcg Documented by: Fentanyl (Sublimaze) 50 mcg IVPUSH ONETIME ONE Stop: 06/02/20 17:18 Last Admin: 06/02/20 17:58 Dose: 50 mcg Documented by: Sodium Chloride (Normal Saline) 1,000 mls @ 999 mls/hr IV ASDIRECTED [facility] Last Admin: 06/02/20 17:58 Dose: 500 mls/hr Documented by: Sodium Chloride (Normal Saline) 71 mls @ 3 mls/sec IV ASDIRECTED [facility] Last Admin: 06/02/20 17:44 Dose: 3 mls/sec Documented by: Potassium Chloride 40 meq/ (Premix) 100 mls @ 25 mls/hr IV ONETIME ONE Stop: 06/02/20 22:11 Last Admin: 06/02/20 20:57 Dose: 25 mls/hr Documented by: Sodium Chloride (Normal Saline) 1,000 mls @ 75 mls/hr IV ASDIRECTED [facility] Last Admin: 06/03/20 13:38 Dose: 75 mls/hr Documented by: Magnesium Sulfate (Magnesium Sulfate In Water 2 Gm/50 Ml) 2 gm in 50 mls @ 12.5 mls/hr IV ONETIME ONE Stop: 06/03/20 09:59 Last Admin: 06/03/20 06:10 Dose: 12.5 mls/hr Documented by: Iopamidol (Isovue-300 (61%)) 94 ml IV . DIRECTED [facility] Last Admin: 06/02/20 17:49 Dose: 94 ml Documented by: Lidocaine HCl (Xylocaine-Mpf 1%) 4 ml INJECT ONETIME ONE Stop: 06/02/20 21:19 Last Admin: 06/02/20 21:22 Dose: 4 ml Documented by: Lidocaine HCl (Xylocaine-Mpf 1%) Confirm Administered Dose 5 ml .ROUTE .STK-MED ONE Stop: 06/02/20 21:20 Last Admin: 06/02/20 21:25 Dose: Not Given Documented by: Magnesium Hydroxide (Milk Of Magnesia) 30 ml PO ONETIME ONE Stop: 06/06/20 06:40 Last Admin: 06/06/20 07:51 Dose: Not Given Documented by: Magnesium Hydroxide (Milk Of Magnesia) Confirm Administered Dose 30 ml .ROUTE .STK-MED ONE Stop: 06/06/20 06:41 Last Admin: 06/06/20 07:56 Dose: 30 ml Documented by: Magnesium Oxide (Magnesium Oxide) 400 mg PO BID [facility] Last Admin: 06/03/20 21:28 Dose: 400 mg Documented by: Metoprolol Tartrate (Lopressor) 12.5 mg PO BID [facility] Last Admin: 06/03/20 21:21 Dose: 12.5 mg Documented by: Metoprolol Tartrate (Lopressor) Confirm Administered Dose 25 mg .ROUTE .STK-MED ONE Stop: 06/02/20 20:36 Last Admin: 06/02/20 21:23 Dose: Not Given Documented by: Naproxen (Naprosyn) 500 mg PO BID [facility] Last Admin: 06/03/20 21:21 Dose: 500 mg Documented by: Non-Formulary Medication (Triamterene/Hydrochlorothiazid [Dyazide 37.5-25 Capsule]) 1 tab PO DAILY [facility] Oxycodone HCl (Oxycodone) 5 mg PO Q4H PRN PRN Reason: Pain (moderate 4-6) Last Admin: 06/04/20 09:57 Dose: 5 mg Documented by: Potassium Chloride (Klor-Con M20) 40 meq PO ONETIME ONE Stop: 06/02/20 18:13 Last Admin: 06/02/20 20:55 Dose: 40 meq Documented by: Potassium Chloride (Klor-Con M20) Confirm Administered Dose 40 meq .ROUTE .STK- MED ONE Stop: 06/02/20 20:35 Last Admin: 06/02/20 21:23 Dose: Not Given Documented by: Pravastatin Sodium (Pravachol) 40 mg PO BEDTIME [facility] Last Admin: 06/03/20 21:21 Dose: 40 mg Documented by: Sodium Chloride (Saline Flush) 10 ml FLUSH ASDIRECTED PRN PRN Reason: Keep Vein Open Last Admin: 06/02/20 18:00 Dose: 10 ml Documented by: Sodium Chloride (Saline Flush) 10 ml FLUSH ONETIME ONE Stop: 06/02/20 17:29 Last Admin: 06/02/20 17:45 Dose: 10 ml Documented by: *Q Meaningful Use (DIS) - VTE *Q VTE Pharmacological Contraindications *Q: Risk of Bleeding
[2020-06-06] MEDS ORDERED: Sodium Phosphate,Monobasic/Sodium Phosphate,Dibasic Enema 133 ML Bottle RECTAL ONE (09:30)
--- NOTE | 2020-06-06 09:34 | CR ---
CHEST: Portable 06/06/2020 at 4:52 AM CLINICAL HISTORY:Fractures, right pneumothorax COMPARISON:06/05/2020 FINDINGS: Patient has multiple right upper posterior rib fractures. There is a transverse lucency in the region of the major fissure. This may be secondary to some minimal remaining air in the pleural space. Left lung is clear. There is hiatal hernia. Right infrahilar airspace disease is resolving. Impression: Probable minimal residual pneumothorax Fractures of the right third through eighth ribs Improving aeration right lung base
--- NOTE | 2020-06-06 10:02 | PN ---
DATE OF SERVICE: 06/06/2020 SUBJECTIVE: Becca will be discharged per hospitalist today to [facility] for rehab. She reports her pain is controlled with the oxycodone. She has not yet had a bowel movement. This is her biggest concern. REVIEW OF SYSTEMS: Remainder of review of systems negative for any pertinent positives and negatives. OBJECTIVE: GENERAL: Becca Smyth is a pleasant 85-year-old female. VITAL SIGNS: TPR is 98.6, 80, 18, blood pressure 133/55. HEENT: Negative. There is a scabbed area to the top back of her head towards the right and it is scabbed over and has what appears to be 1 stitch. This stitch will be left in until followup with Avery Machado MD, with fear of disrupting that healing scab and suture, would possibly start bleeding again. NECK: Supple. HEART: Regular rate and rhythm. LUNGS: Clear. She has a difficulty taking a deep inspiration due to pain in her right ribs. ABDOMEN: Soft, nontender. ASSESSMENT: 1. Multiple right chest rib fractures associated with small pneumothorax. 2. Right pneumothorax secondary to recent trauma with fall. 3. Scalp lacerations sutured. 4. Hypertension. PLAN: 1. Milk of magnesia was given now at time of report. 2. Follow up 06/13/2020 with Avery Machado MD. Appointment made at 10 a.m. Check a chest x-ray PA and lateral prior to time of appointment. Will have scalp suture removed at that time. Noelle Eric PA-C /[phone]
[2020-06-06 10:07] VITALS: BP 144/63; PULSE 83
== END 2020-06-06 11:51 | DRG 200 ==
LOC: JP.ED 16:14 → JP.ICU 18:13 → JP.MS 06-03 15:17
PROVIDERS: ADMIT Hospitalist; ATTEND Internal Medicine
DX: S22.49XA Multiple fractures of ribs, unspecified side, initial encounter for closed fracture (principal); S27.0XXA Traumatic pneumothorax, initial encounter; S22.41XA Multiple fractures of ribs, right side, initial encounter for closed fracture; I10 Essential (primary) hypertension; Z66 Do not resuscitate; H54.7 Unspecified visual loss; H91.90 Unspecified hearing loss, unspecified ear; E78.00 Pure hypercholesterolemia, unspecified; F41.9 Anxiety disorder, unspecified; M19.90 Unspecified osteoarthritis, unspecified site; K21.9 Gastro-esophageal reflux disease without esophagitis; Z96.659 Presence of unspecified artificial knee joint; E87.6 Hypokalemia; H35.30 Unspecified macular degeneration; R32 Unspecified urinary incontinence; Z79.82 Long term (current) use of aspirin; Z79.899 Other long term (current) drug therapy; Z87.01 Personal history of pneumonia (recurrent); Z98.49 Cataract extraction status, unspecified eye; Z88.5 Allergy status to narcotic agent; W18.39XA Other fall on same level, initial encounter
CPT/HCPCS: 36415; 70450; 71045; 71045-26; 71260; 72125; 74177; 80048; 80053; 83735; 85025; 93005; 94762; 96374; 97110-GP; 97162-GP; 97530-GP; 99285; 99285-25; A9270-GY; J1170; J2405; J3010; J3475; J3480; J7030; Q9967

== ENCOUNTER 2020-09-03 10:19 | Emergency (ER) | payer MEDICARE, OTHER ==
[2020-09-03 10:35] VITALS: BP 149/66; PULSE 89
[2020-09-03] MEDS ORDERED: Ketorolac 30 MG/ML SDV IM ONE (10:51)
--- NOTE | 2020-09-03 10:54 | EDM.PDOC ---
ED HPI GENERAL MEDICAL PROBLEM - General Chief Complaint: Lower Extremity Injury/Pain Stated Complaint: FELL HIT HEAD Time Seen by Provider: 09/03/20 10:47 Source of Information: Reports: Patient, Family, RN Notes Reviewed History Limitations: Reports: No Limitations - History of Present Illness INITIAL COMMENTS - FREE TEXT/NARRATIVE: 85-year-old female presents emergency department today following a fall at home she landed predominantly on her left hip now is experiencing pain pain with ambulation it is hard for her to bear weight. She also hit her head but no loss of consciousness she describes no other symptoms with head injury Left Hip Pain Score (Numeric/FACES): 4 Occipital Pain Score (Numeric/FACES): 2 - Related Data Allergies Allergy/AdvReac Type Severity Reaction Status Date / Time codeine Allergy Bradycardia Verified 06/02/20 16:32 Home Meds: Home Meds Ascorbate Calcium [Vitamin C] 500 mg PO DAILY 05/14/16 [History] Calcium Carbonate [Calcium] 600 mg PO DAILY 05/14/16 [History] Omeprazole 20 mg PO DAILY 05/14/16 [History] Pravastatin [Pravachol] 40 mg PO DAILY 05/14/16 [History] amLODIPine Besylate [Amlodipine Besylate] 5 mg PO DAILY 05/14/16 [History] Metoprolol Tartrate 12.5 mg PO BID 09/04/18 [History] Latanoprost 1 drop EYEBOTH DAILY 12/29/18 [History] Aspirin 81 mg PO DAILY 06/07/19 [History] Potassium Chloride 20 meq PO DAILY 05/07/20 [History] Triamterene/Hydrochlorothiazid [Dyazide 37.5-25 Capsule] 1 tab PO DAILY 05/07/20 [History] Acetaminophen [Tylenol Extra Strength] 1,000 mg PO TID #180 tablet 06/06/20 [Rx] Past Medical History HEENT History: Reports: Cataract, Hard of Hearing, Impaired Vision, Macular Degeneration Cardiovascular History: Reports: Heart Murmur, High Cholesterol, Hypertension, Other (See Below) Other Cardiovascular History: "heart stopped during tear duct surgery due to pre-op muscle relaxant -40 years ago" Respiratory History: Reports: Bronchitis, Recurrent, Intubation, Previous, Pneumonia, Recurrent Gastrointestinal History: Reports: Colon Polyp, Gastritis, GERD Genitourinary History: Reports: Urinary Incontinence PROCESS CHECKER History: Reports: Dysfunctional Uterine Bleeding, , Spontaneous Musculoskeletal History: Reports: Osteoarthritis Other Musculoskeletal History: R shoulder pain. R knee pain. R leg pain Psychiatric History: Reports: Anxiety Hematologic History: Reports: Anesthesia Reaction, Blood Transfusion(s) - Infectious Disease History Infectious Disease History: Reports: Chicken Pox, Measles, Mumps, Pertussis (Whooping Cough) - Past Surgical History Head Surgeries/Procedures: Reports: None HEENT Surgical History: Reports: Cataract Surgery, Other (See Below) Other HEENT Surgeries/Procedures: attempted new tear duct but didn't work" Cardiovascular Surgical History: Reports: None Respiratory Surgical History: Reports: None GI Surgical History: Reports: Colonoscopy Female Surgical History: Reports: Breast Biopsy, D&C, Oophorectomy, Tubal Ligation Neurological Surgical History: Reports: None Musculoskeletal Surgical History: Reports: Arthroscopic Knee, Knee Replacement, Shoulder Surgery, Other (See Below) Other Musculoskeletal Surgeries/Procedures:: Left knee Dermatological Surgical History: Reports: Other (See Below) Social & Family History - Family History Family Medical History: No Pertinent Family History - Tobacco Use Tobacco Use Status *Q: Never Tobacco User - Caffeine Use Caffeine Use: Reports: Coffee - Recreational Drug Use Recreational Drug Use: No Review of Systems - Review of Systems Review Of Systems: See Below Constitutional: Reports: No Symptoms Respiratory: Reports: No Symptoms Cardiovascular: Reports: No Symptoms Genitourinary: Reports: No Symptoms Musculoskeletal: Reports: Joint Pain (Left hip pain) Neurological: Reports: No Symptoms ED EXAM, GENERAL - Physical Exam Exam: See Below Free Text/Narrative:: Examination of the left hip I cannot appreciate any erythema or edema she is p oint tender over the greater trochanter does not tolerate flexion extension or internal and external rotation without pain Exam Limited By: No Limitations General Appearance: Alert, WD/WN, No Apparent Distress Eye Exam: Bilateral Eye: Normal Inspection Head: Atraumatic, Normocephalic Respiratory/Chest: No Respiratory Distress Course - Vital Signs Last Recorded V/S: Last Vital Signs Temp 98.2 F 09/03/20 10:34 Pulse 89 09/03/20 10:34 Resp 16 09/03/20 10:34 BP 149/66 H 09/03/20 10:34 Pulse Ox 98 09/03/20 10:34 - Orders/Labs/Meds Meds: Medications Discontinued Medications Generic Name Dose Route Start Last Admin Trade Name Freq PRN Reason Stop Dose Admin Ketorolac Tromethamine 30 mg 09/03/20 10:51 09/03/20 11:03 Ketorolac 30 Mg/Ml Sdv IM 09/03/20 10:52 30 mg ONETIME ONE Administration Departure - Departure Time of Disposition: 11:39 Disposition: Home, Self-Care 01 Condition: Fair Clinical Impression: Contusion of left hip Qualifiers: Encounter type: initial encounter Qualified Code(s): S70.02XA - Contusion of left hip, initial encounter - Discharge Information Referrals: Bhavesh Hua Sr, MD [Primary Care Provider] - Forms: ED Department Discharge Additional Instructions: Continue to use ibuprofen as needed for pain control, please followup with your primary care provider in 3-5 days if not better, please call return to the emergency department with worsening of symptoms. Sepsis Event Note (ED) - Evaluation Sepsis Screening Result: No Definite Risk - Focused Exam Vital Signs: Vital Signs Temp Pulse Resp BP Pulse Ox 09/03/20 10:34 98.2 F 89 16 149/66 H 98 - Assessment/Plan Plan: Assessment Acuity = acute Site and laterality = left hip contusion Etiology = secondary to fall Manifestations = none Location of injury = Home Lab values = x-ray shows no fracture Plan She was able to ambulate in the emergency department given 30 mg of Toradol which provided good relief, follow-up with her primary care in the next 3 to 5 days if not better This note was dictated using [email or web address] voice recognition software please call with any questions on syntax or grammar.
--- NOTE | 2020-09-03 11:22 | CR ---
Hip Min 2V or 3V w Pelvis Lt CLINICAL HISTORY: Fall, pain FINDINGS: No fracture or dislocation is identified. There is severe narrowing of the left hip joint space with acetabular spurring. There is mild to moderate narrowing of the right hip joint space. IMPRESSION: Severe left hip osteoarthritis with moderate osteoarthritic change in the right No fracture dislocation or osseous lesion seen
== END 2020-09-03 11:50 | disposition home or self-care (01) ==
LOC: JP.ED 10:19
DX: S70.02XA Contusion of left hip, initial encounter (principal); E78.00 Pure hypercholesterolemia, unspecified; I10 Essential (primary) hypertension; K21.9 Gastro-esophageal reflux disease without esophagitis; M19.90 Unspecified osteoarthritis, unspecified site; Z79.82 Long term (current) use of aspirin; Z88.5 Allergy status to narcotic agent; W19.XXXA Unspecified fall, initial encounter; Y92.009 Unspecified place in unspecified non-institutional (private) residence as the place of occurrence of the external cause
CPT/HCPCS: 73502-26-LT; 73502-LT; 96372; 99283-25; J1885

== ENCOUNTER 2023-04-12 16:31 | Emergency (ER) | payer MEDICARE, OTHER, MEDICAID ==
[2023-04-12 17:17] LABS: BASOPHILS ABSOLUTE AUTO 0.03 K/uL (0.00-0.10); BASOPHILS PERCENT AUTO 0.3 % (0.1-1.3); EOSINOPHILS ABSOLUTE AUTO 0.01 K/uL (0.00-0.40); EOSINOPHILS PERCENT AUTO 0.1 % (0.0-5.4); HEMATOCRIT 42.2 % (34.3-46.0); HEMOGLOBIN 14.5 g/dL (11.2-15.5); IMMATURE GRAN ABSOLUTE AUTO 0.02 K/uL (0.00-0.23); IMMATURE GRAN PERCENT AUTO 0.2 % (0.0-0.7); LYMPHOCYTES ABSOLUTE AUTO 1.49 K/uL (0.8-3.3); LYMPHOCYTES PERCENT AUTO 14.1 % (11.4-47.7); MEAN CORPUSCULAR HEMOGLOBIN 33.7 pg (31.6-35.5); MEAN CORPUSCULAR HGB CONC 34.4 g/dL (31.6-35.5); MEAN CORPUSCULAR VOLUME 98.1 fL (81.4-99.0); MONOCYTES ABSOLUTE AUTO 0.48 K/uL (0.20-0.90); MONOCYTES PERCENT AUTO 4.5 % (3.3-12.6); NEUTROPHILS ABSOLUTE AUTO 8.56 K/uL (1.0-7.6); NEUTROPHILS PERCENT AUTO 80.8 % (40.0-78.1); PLATELET COUNT,PLT 259 K/uL (130-375); WHITE BLOOD CELL COUNT,WBC 10.6 K/uL (3.2-11.0)
[2023-04-12 17:18] LABS: A/G RATIO 1.1 (1.2-2.2); ALANINE AMINOTRANSFERASE,ALT 20 U/L (12-78); ALKALINE PHOSPHATASE 60 U/L (46-116); ANION GAP 13.5 mmol/L (5.0-14.0); ASPARTATE AMNIOTRANSFERASE,AST 18 U/L (15-37); BILIRUBIN TOTAL 0.6 mg/dL (0.2-1.0); BLOOD UREA NITROGEN,BUN 16 mg/dL (7-18); CALCIUM 9.4 mg/dL (8.5-10.1); CARBON DIOXIDE,CO2 27 mmol/L (21-32); CHLORIDE,CL 101 mmol/L (100-108); CREATININE 0.8 mg/dL (0.6-1.0); EST CRCL DRUG DOSING (CG) 36.68 mL/min; ESTIMATED GFR 71 mL/min (>60); GLUCOSE RANDOM 120 mg/dL (74-106); POTASSIUM,K 3.5 mmol/L (3.6-5.2); PROTEIN TOTAL,TP 7.6 g/dL (6.4-8.2); SODIUM,NA 138 mmol/L (140-148); TROPONIN I HIGH SENSITIVITY 9.5 pg/mL (<=60.3)
[2023-04-12 17:24] LABS: C-REACTIVE PROTEIN 0.39 mg/dL (<0.50)
[2023-04-12 18:10] LABS: CORONAVIRUS COVID-19 NAA NEGATIVE (NEGATIVE); INFLUENZA A NAA NEGATIVE (NEGATIVE); INFLUENZA B NAA NEGATIVE (NEGATIVE); RESPIRATORY SYNCYTIAL VIR NAA NEGATIVE (NEGATIVE)
[2023-04-12] MEDS ORDERED: Alum Hydrox/Mag Hydrox/Simeth 15 ML, Lidocaine 2% 15 ML PO ONE ×2 (20:18)
[2023-04-12 20:59] VITALS: BP 157/79; PULSE 83
== END 2023-04-12 21:11 | disposition home or self-care (01) ==
LOC: JP.ED 16:31
DX: K21.9 Gastro-esophageal reflux disease without esophagitis (principal); K44.9 Diaphragmatic hernia without obstruction or gangrene; I10 Essential (primary) hypertension; E78.00 Pure hypercholesterolemia, unspecified; Z79.82 Long term (current) use of aspirin; Z79.899 Other long term (current) drug therapy; Z88.5 Allergy status to narcotic agent
CPT/HCPCS: 0241U; 36415; 71045; 74176; 80053; 83690; 84484; 85025; 86140; 93005; 99285; A9270

== ENCOUNTER 2023-05-23 14:15 | Emergency (ER) | payer MEDICARE, OTHER, MEDICAID ==
[2023-05-23 14:58] VITALS: BP 161/83; PULSE 91
[2023-05-23 15:50] LABS: BASOPHILS PERCENT AUTO 0.4 % (0.1-1.3); EOSINOPHILS ABSOLUTE AUTO 0.05 K/uL (0.00-0.40); EOSINOPHILS PERCENT AUTO 1.1 % (0.0-5.4); HEMATOCRIT 39.8 % (34.3-46.0); HEMOGLOBIN 13.8 g/dL (11.2-15.5); IMMATURE GRAN PERCENT AUTO 0.2 % (0.0-0.7); LYMPHOCYTES ABSOLUTE AUTO 1.16 K/uL (0.8-3.3); LYMPHOCYTES PERCENT AUTO 24.6 % (11.4-47.7); MEAN CORPUSCULAR HEMOGLOBIN 33.5 pg (31.6-35.5); MEAN CORPUSCULAR HGB CONC 34.7 g/dL (31.6-35.5); MEAN CORPUSCULAR VOLUME 96.6 fL (81.4-99.0); MONOCYTES ABSOLUTE AUTO 0.29 K/uL (0.20-0.90); MONOCYTES PERCENT AUTO 6.1 % (3.3-12.6); NEUTROPHILS ABSOLUTE AUTO 3.19 K/uL (1.0-7.6); NEUTROPHILS PERCENT AUTO 67.6 % (40.0-78.1); PLATELET COUNT,PLT 199 K/uL (130-375); RED BLOOD CELL COUNT 4.12 M/uL (3.77-5.24); WHITE BLOOD CELL COUNT,WBC 4.7 K/uL (3.2-11.0)
[2023-05-23 15:51] LABS: BASOPHILS ABSOLUTE AUTO 0.02 K/uL (0.00-0.10); IMMATURE GRAN ABSOLUTE AUTO 0.01 K/uL (0.00-0.23)
[2023-05-23 16:00] LABS: INFLUENZA A NAA NEGATIVE (NEGATIVE); INFLUENZA B NAA NEGATIVE (NEGATIVE); RESPIRATORY SYNCYTIAL VIR NAA NEGATIVE (NEGATIVE)
[2023-05-23 16:01] LABS: CORONAVIRUS COVID-19 NAA POSITIVE (NEGATIVE)
[2023-05-23 16:18] LABS: A/G RATIO 0.9 (1.2-2.2); ALANINE AMINOTRANSFERASE,ALT 19 U/L (12-78); ALBUMIN 3.2 g/dL (3.4-5.0); ALKALINE PHOSPHATASE 64 U/L (46-116); ASPARTATE AMNIOTRANSFERASE,AST 20 U/L (15-37); BILIRUBIN TOTAL 0.3 mg/dL (0.2-1.0); BLOOD UREA NITROGEN,BUN 12 mg/dL (7-18); CALCIUM 8.3 mg/dL (8.5-10.1); CARBON DIOXIDE,CO2 28 mmol/L (21-32); CHLORIDE,CL 101 mmol/L (100-108); CREATININE 0.7 mg/dL (0.6-1.0); EST CRCL DRUG DOSING (CG) 39.13 mL/min; ESTIMATED GFR 83 mL/min (>60); GLUCOSE RANDOM 95 mg/dL (74-106); POTASSIUM,K 3.3 mmol/L (3.6-5.2); PROTEIN TOTAL,TP 6.8 g/dL (6.4-8.2); SODIUM,NA 137 mmol/L (140-148)
[2023-05-23 16:19] LABS: ANION GAP 11.3 mmol/L (5.0-14.0)
[2023-05-23 16:34] LABS: APPEARANCE,URINE CLEAR (CLEAR); BILIRUBIN,URINE NEGATIVE (NEGATIVE); COLOR,URINE YELLOW (YELLOW); GLUCOSE,URINE NEGATIVE (NEGATIVE); KETONES,URINE NEGATIVE (NEGATIVE); LEUKOCYTE ESTERASE,URINE NEGATIVE (NEGATIVE); NITRITE,URINE NEGATIVE (NEGATIVE); OCCULT BLOOD,URINE TRACE-INTACT (NEGATIVE); PH,URINE 6.5 (5.0-8.0); PROTEIN,URINE NEGATIVE (NEGATIVE); UROBILINOGEN,URINE 0.2 EU/dL (0.2-1.0)
[2023-05-23 16:44] LABS: AMORPHOUS SEDIMENT,URINE NOT SEEN; BACTERIA,URINE FEW; EPITHELIAL CELLS,URINE RARE; MUCUS,URINE FEW; RBC,URINE 0-5 (0-5); WBC,URINE 0-5 (0-5)
== END 2023-05-23 18:29 | disposition home or self-care (01) ==
LOC: JP.ED 14:15
DX: U07.1 COVID-19 (principal); I10 Essential (primary) hypertension; E78.00 Pure hypercholesterolemia, unspecified; I25.2 Old myocardial infarction; K21.9 Gastro-esophageal reflux disease without esophagitis; Z95.5 Presence of coronary angioplasty implant and graft; Z79.82 Long term (current) use of aspirin; M19.90 Unspecified osteoarthritis, unspecified site; Z88.5 Allergy status to narcotic agent; Z79.899 Other long term (current) drug therapy
CPT/HCPCS: 0241U; 36415; 71046; 80053; 81001; 85025; 99283

== ENCOUNTER 2023-10-04 18:06 | Emergency (ER) | payer MEDICARE, OTHER, MEDICAID ==
[2023-10-04 18:28] LABS: BASE EXCESS VENOUS 2.4 mm/L; BICARBONATE,VENOUS 26.4 mmol/L; CARBOXYHEMOGLOBIN 1.7 % (0.0-1.6); METHEMOGLOBIN 0.7 %; O2 SATURATION VENOUS 72.8; OXYHEMOGLOBIN 71.1 %; PCO2 VENOUS 40.6 mm/Hg; PO2 VENOUS 41.1 mm/Hg; TOTAL HEMOGLOBIN 14.9 g/dL (12.0-16.0)
[2023-10-04 18:30] LABS: BASOPHILS ABSOLUTE AUTO 0.02 K/uL (0.00-0.10); BASOPHILS PERCENT AUTO 0.3 % (0.1-1.3); EOSINOPHILS ABSOLUTE AUTO 0.04 K/uL (0.00-0.40); EOSINOPHILS PERCENT AUTO 0.6 % (0.0-5.4); HEMATOCRIT 41.1 % (34.3-46.0); HEMOGLOBIN 14.3 g/dL (11.2-15.5); IMMATURE GRAN ABSOLUTE AUTO 0.01 K/uL (0.00-0.23); IMMATURE GRAN PERCENT AUTO 0.1 % (0.0-0.7); LYMPHOCYTES ABSOLUTE AUTO 1.99 K/uL (0.8-3.3); LYMPHOCYTES PERCENT AUTO 29.6 % (11.4-47.7); MEAN CORPUSCULAR HEMOGLOBIN 33.4 pg (31.6-35.5); MEAN CORPUSCULAR HGB CONC 34.8 g/dL (31.6-35.5); MONOCYTES ABSOLUTE AUTO 0.59 K/uL (0.20-0.90); MONOCYTES PERCENT AUTO 8.8 % (3.3-12.6); NEUTROPHILS ABSOLUTE AUTO 4.08 K/uL (1.0-7.6); NEUTROPHILS PERCENT AUTO 60.6 % (40.0-78.1); PLATELET COUNT,PLT 233 K/uL (130-375); RED BLOOD CELL COUNT 4.28 M/uL (3.77-5.24); WHITE BLOOD CELL COUNT,WBC 6.7 K/uL (3.2-11.0)
[2023-10-04 18:38] VITALS: PULSE 75
[2023-10-04 18:40] LABS: APPEARANCE,URINE CLEAR (CLEAR); BILIRUBIN,URINE NEGATIVE (NEGATIVE); COLOR,URINE YELLOW (YELLOW); GLUCOSE,URINE NEGATIVE (NEGATIVE); KETONES,URINE TRACE mg/dL (NEGATIVE); LEUKOCYTE ESTERASE,URINE NEGATIVE (NEGATIVE); NITRITE,URINE NEGATIVE (NEGATIVE); OCCULT BLOOD,URINE NEGATIVE (NEGATIVE); PROTEIN,URINE NEGATIVE (NEGATIVE); UROBILINOGEN,URINE 0.2 EU/dL (0.2-1.0)
[2023-10-04 18:59] LABS: BLOOD UREA NITROGEN,BUN 23 mg/dL (7-18); CALCIUM 9.7 mg/dL (8.5-10.1); CARBON DIOXIDE,CO2 26 mmol/L (21-32); CHLORIDE,CL 101 mmol/L (100-108); EST CRCL DRUG DOSING (CG) 27.39 mL/min; ESTIMATED GFR 54 mL/min (>60); GLUCOSE RANDOM 94 mg/dL (74-106); POTASSIUM,K 3.6 mmol/L (3.6-5.2); PRO B-TYPE NATRIUR PEPT,BNPPRO 370 pg/mL (5-450); SODIUM,NA 138 mmol/L (140-148)
[2023-10-04 19:00] LABS: ANION GAP 14.6 mmol/L (5.0-14.0); C-REACTIVE PROTEIN < 0.50 mg/dL (<0.50)
[2023-10-04 19:31] VITALS: BP 139/72
== END 2023-10-04 20:06 | disposition home or self-care (01) ==
LOC: JP.ED 18:06
DX: R06.02 Shortness of breath (principal); I10 Essential (primary) hypertension; E78.00 Pure hypercholesterolemia, unspecified; I25.2 Old myocardial infarction; K21.9 Gastro-esophageal reflux disease without esophagitis; Z90.49 Acquired absence of other specified parts of digestive tract; Z90.710 Acquired absence of both cervix and uterus; Z86.16 Personal history of COVID-19; Z79.82 Long term (current) use of aspirin; Z79.899 Other long term (current) drug therapy; Z88.5 Allergy status to narcotic agent
CPT/HCPCS: 36415; 71045; 71045-26; 80048; 81001; 82803; 83605; 83880; 84484; 85025; 86140; 93005; 99285